=== PATIENT | female | born 1960 | race Caucasian/White ===

== ENCOUNTER 2024-05-15 06:58 | Inpatient (IN) ==
--- NOTE | 2024-05-15 07:29 | Emergency Department Note ---
Impression & Plan Nausea & vomiting, Ureterolithiasis, Fever ED Provider Note ED Provider Note NAME: DINORA JORDAN AGE:63 SEX: Female : 1960 ARRIVES VIA: [] INFORMANT: Patient ED PROVIDER(s): Gaby Reed DO CHIEF COMPLAINT: nausea/vomiting HPI: This is a 63-year-old female who presents emergency room due to concern for recurrent vomiting, right flank pain, and general abdominal discomfort that began overnight. Patient is from out of the area and is here dog sitting for a friend. She admits to accompanying chills but did not measure her temperature. She states symptoms first began abruptly at around 4 AM. She states she did eat different food yesterday evening that her friends had left for her and thought initially she maybe had food poisoning. Patient denies any other known sick contacts. She states she had a normal bowel movement yesterday and felt well and in her usual state of health yesterday. Patient has had prior gastric bypass although states that was greater than 10 years ago. Patient does not have a long history of kidney stones states the flank pain does feel similar to prior episodes. Patient also takes Ozempic, last dose was on Saturday. She has not recently increase the dose or had GI symptoms related to her Ozempic. No other recent change in diet, change in medications, or known sick contact. No recent travel. PAST MEDICAL HISTORY:See Below PAST SURGICAL HISTORY:See Below FAMILY HISTORY:See Below SOCIAL HISTORY:See Below HOME MEDICATIONS:See Below ALLERGIES:See Below VITALS:See Below PHYSICAL EXAMINATION: GENERAL: alert, well appearing, well nourished, no distress, non-toxic EYE EXAM: normal conjunctiva, PERRL and EOM's grossly intact OROPHARYNX: no exudate, no erythema, lips, buccal mucosa, and tongue normal and mucous membranes are moist NECK: supple, no nuchal rigidity, no adenopathy, non-tender LUNGS: Clear to auscultation. Normal chest wall mechanics, no w/r/r HEART: no murmurs, S1 normal and S2 normal ABDOMEN: abdomen soft, non-tender, normo-active bowel sounds, no masses, no rebound or guarding. BACK: Back is symmetrical on inspection and there is no deformity, no midline tenderness, no CVA tenderness. SKIN: no rashes, petechiae, orbruising UPPER EXTREMITIES: upper extremities are grossly normal. FROM, nml pulses b/l. LOWER EXTREMITIES: No pitting edema. FROM, nml pulses b/l. NEURO EXAM: Normal sensorium, cranial nerves II-XII grossly intact, normal speech, no facial droop,nogross weakness of arms, no gross weakness of legs. Gross sensation intact. No ataxia. Vital Signs: reviewed and remarkable Differential Diagnosis: viral syndrome, dehydration, uti, renal colic, pyelo, colitis, sbo, hepatitis, ascending cholangitis, pancreatitis, duodenitis, PUD, perforation, as well as others were considered MEDICAL DECISION MAKING: This is a 63 yo female who presents to the ER with abdominal pain and vomiting. She was afebrile and VS stable. Labs drawn and sent, IV established, EKG performed and interpreted at bedside, and patient placed on telemetry. She was started on IVF, and given IV zofran and IV tylenol initially. She had persistent nausea and was given IV compazine and IV benadryl. She was sent for CT a/p additionally and urine collected and sent. IV fentanyl given additionally for pain. Urine reassuring and no evidence of LUCILLE. Labs otherwise reassuring. While mangaing symptoms, patient then developed a fever. CT revealed ureterolithiasis. Cultures, procal, and lactic acid added and she was given a dose of IV rocephin. Due to concern for complications related to the stone and evolving infection, urology was contacted and came to see the patient at bedside. I discussed the case with the hospitalist team additionally. Patient was continued to IVF additionally and did receive 30 ml/kg based on ABW while in the ER. Consultation(s): 1141: Discussed with Phylicia Kim, urology team. She will be down to evaluate the patient. 1155: Patient seen by urology team, they will plan for stent placement today. 1220: Discussed with Dr. Villanueva, [facility] hospitalist team, for additional evaluation and management. ER Treatment Provided: See below Diagnostics Interpreted By Me: -ECG: Sinus tachycardia at 106, leftward axis, normal intervals, nonspecific ST/T wave changes -Cardiac Monitoring: An order was placed for continuous cardiac monitoring. The monitor shows a rate of 118 with sinus tachycardia rhythm. -Laboratory studies: As stated above and show below. -Imaging studies: ct a/p - ureterolithiasis noted, no other acute intraabdominal pathology Triage Nursing Note Reviewed Prior/Outside Records Reviewed Past Med/Surg History Problem List Fever (Acute) Ureterolithiasis (Acute) Nausea & vomiting (Acute) TIA (transient ischemic attack) (Acute) Diabetes (Chronic) HTN (hypertension) (Chronic) MTHFR mutation (Chronic) Slurred speech (Acute) Weakness (Acute) Social History Smoking Status: Former smoker Tobacco Type: Cigarettes Do You Dip or Chew Tobacco: No; Hx Alcohol Use: No Hx Substance Use: Yes Last Used Substance Other:: 03/04/2001 Preferred Language: Hungarian Communication Ability: Effective Operation Supervisor Required: No Beliefs That Will Affect Care: None Current Living Situation: Spouse Other Information That Helps Us Care for You: No Feels Safe at Home: Yes Safety Concerns: Feels Safe At This Time Assistive Devices: Denture - Lower Allergies Allergies Allergy/AdvReac Type Severity Reaction Status Date / Time hydromorphone Allergy Severe Anaphylaxis Verified 05/15/24 13:11 chlorhexidine Allergy Intermediate Blisters Verified 05/15/24 13:11 and itching oxycodone Allergy Mild Itching Verified 05/15/24 13:11 tetracycline Allergy Mild RASH Verified 05/15/24 13:11 capsaicin [Diclopak] AdvReac Severe Blurred Verified 05/15/24 13:11 vision with eye drops. diclofenac [Diclopak] AdvReac Severe Blurred Verified 05/15/24 13:11 vision with eye drops. hydrocodone AdvReac Severe Severe Verified 05/15/24 13:11 Headache aspirin AdvReac Intermediate Headache Verified 05/15/24 13:11 dipyridamole AdvReac Intermediate Headache Verified 05/15/24 13:11 Diclopak AdvReac Unknown Blurred Verified 10/08/14 21:07 vision with eye drops. Home Meds Home Medications Medication Instructions Recorded Confirmed calcium 500 mg-vitamin D3 100 1 tab PO BID ##0 10/08/14 05/15/24 unit-vitamin K 40 mcg chewable tablet cholecalciferol (vitamin D3) 50 50 mcg PO DAILY ##0 07/31/15 03/07/25 mcg (2,000 unit) tablet (Vitamin D3) cyanocobalamin (vitamin B-12) 1,000 mcg PO DAILY ##0 10/08/14 05/15/24 1,000 mcg tablet (Vitamin B-12) milk thistle 500 mg capsule 500 mg PO DAILY ##0 10/08/14 05/15/24 pediatric multivitamin 1 tab PO DAILY #0 tabs 10/08/14 05/15/24 simethicone 80 mg chewable tablet 80 mg PO BID PRN Abdominal 10/08/14 05/15/24 Distention ##0 vitamin E 268 mg (400 unit) capsule 268 mg PO DAILY ##0 10/08/14 05/15/24 clopidogrel 75 mg tablet 75 mg PO DAILY 05/15/24 05/15/24 pravastatin 20 mg tablet 20 mg PO DAILY 05/15/24 05/15/24 semaglutide 0.25 mg or 0.5 mg (2 0.5 mg subcut WK 05/15/24 05/15/24 mg/3 mL) subcutaneous pen injector (Ozempic) sertraline 100 mg tablet 100 mg PO DAILY 05/15/24 05/15/24 sertraline 25 mg tablet 25 mg PO DAILY 05/15/24 05/15/24 Results & Data (ED) Vital Signs Vital Signs - 24 hr 05/15/24 07:06 05/15/24 07:06 05/15/24 08:00 Temperature 36.9 C Temperature Source Oral Pulse Rate 104 H 110 H Pulse Rate [Apical] 104 H Pulse Rate from SpO2 Sensor 111 H Pulse Rhythm Regular Pulse Rhythm [Apical] Regular Pulse Strength Normal Pulse Strength [Apical] Normal Respiratory Rate 24 24 28 H Respiratory Effort / Characteristics Non-Labored Spontaneous Non-Labored Spontaneous Respiratory Depth Normal Normal Respiratory Pattern Regular Regular Blood Pressure 155/87 H 150/76 H Blood Pressure [Right Arm] 155/87 H Blood Pressure Mean 109 100 Blood Pressure Mean [Right Arm] 109 Blood Pressure Position Lying Blood Pressure Position [Right Arm] Pulse Oximetry 96 96 95 Oxygen Delivery Method Room Air Room Air Room Air Oxygen Flow Rate Sepsis Recent Fever Within 48 Hours No Sepsis New/Unexplained Change in Mental Status No Sepsis Action Taken by Nursing Physician Notified 05/15/24 08:17 05/15/24 09:00 05/15/24 09:30 Temperature Temperature Source Pulse Rate 97 H 104 H 115 H Pulse Rate [Apical] Pulse Rate from SpO2 Sensor 104 H 115 H Pulse Rhythm Pulse Rhythm [Apical] Pulse Strength Pulse Strength [Apical] Respiratory Rate 26 H 27 H Respiratory Effort / Characteristics Respiratory Depth Respiratory Pattern Blood Pressure 150/54 H 143/89 H Blood Pressure [Right Arm] Blood Pressure Mean 86 108 Blood Pressure Mean [Right Arm] Blood Pressure Position Blood Pressure Position [Right Arm] Pulse Oximetry 94 95 Oxygen Delivery Method Room Air Room Air Oxygen Flow Rate Sepsis Recent Fever Within 48 Hours Sepsis New/Unexplained Change in Mental Status Sepsis Action Taken by Nursing 05/15/24 10:49 05/15/24 11:30 05/15/24 12:05 Temperature 38.2 C H 37.6 C Temperature Source Oral Oral Pulse Rate 120 H Pulse Rate [Apical] 129 H 114 H Pulse Rate from SpO2 Sensor 118 H Pulse Rhythm Pulse Rhythm [Apical] Regular Regular Pulse Strength Pulse Strength [Apical] Normal Normal Respiratory Rate 34 H 26 H 26 H Respiratory Effort / Characteristics Spontaneous Labored Spontaneous Labored Respiratory Depth Shallow Shallow Respiratory Pattern Tachypnea Tachypnea Blood Pressure 161/86 H Blood Pressure [Right Arm] 178/98 H 138/80 Blood Pressure Mean 122 Blood Pressure Mean [Right Arm] 124 99 Blood Pressure Position Blood Pressure Position [Right Arm] Lying Pulse Oximetry 94 94 93 Oxygen Delivery Method Room Air Room Air Room Air Oxygen Flow Rate Sepsis Recent Fever Within 48 Hours Sepsis New/Unexplained Change in Mental Status Sepsis Action Taken by Nursing 05/15/24 12:05 05/15/24 12:21 05/15/24 12:53 Temperature 37.6 C Temperature Source Oral Pulse Rate 115 H Pulse Rate [Apical] 117 H Pulse Rate from SpO2 Sensor Pulse Rhythm Pulse Rhythm [Apical] Pulse Strength Pulse Strength [Apical] Respiratory Rate 20 Respiratory Effort / Characteristics Non-Labored Spontaneous Respiratory Depth Normal Respiratory Pattern Blood Pressure Blood Pressure [Right Arm] 142/82 H Blood Pressure Mean Blood Pressure Mean [Right Arm] 102 Blood Pressure Position Blood Pressure Position [Right Arm] Pulse Oximetry 93 Oxygen Delivery Method Room Air Oxygen Flow Rate Sepsis Recent Fever Within 48 Hours Sepsis New/Unexplained Change in Mental Status Sepsis Action Taken by Nursing 05/15/24 13:57 05/15/24 14:05 05/15/24 14:15 Temperature 36.9 C Temperature Source Temporal Artery Scan Pulse Rate Pulse Rate [Apical] 108 H 108 H 104 H Pulse Rate from SpO2 Sensor Pulse Rhythm Pulse Rhythm [Apical] Regular Regular Regular Pulse Strength Pulse Strength [Apical] Respiratory Rate 21 21 19 Respiratory Effort / Characteristics Non-Labored Spontaneous Non-Labored Spontaneous Non-Labored Spontaneous Respiratory Depth Normal Normal Normal Respiratory Pattern Regular Regular Regular Blood Pressure Blood Pressure [Right Arm] 151/80 H 136/74 127/73 Blood Pressure Mean Blood Pressure Mean [Right Arm] 103 94 91 Blood Pressure Position Blood Pressure Position [Right Arm] Pulse Oximetry 94 94 93 Oxygen Delivery Method Oxymask Oxymask Oxymask Oxygen Flow Rate 6 9 9 Sepsis Recent Fever Within 48 Hours Sepsis New/Unexplained Change in Mental Status Sepsis Action Taken by Nursing Laboratory Data 05/17/24 06:02 05/17/24 08:06 Lab Results 05/15/24 05/15/24 05/15/24 Range/Units 07:09 09:58 11:36 WBC 10.27 (4.8-10.8) K/ul RBC 5.52 H (4.20-5.40) M/uL Hgb 15.1 (12.0-16.0) g/dl Hct 44.9 (37.0-47.0) % MCV 81.3 (80.0-100.0) fL MCH 27.4 (25.0-34.0) pg MCHC 33.6 (32.0-36.0) g/dL RDW Std Deviation 39.0 (36.4-46.3) fL RDW Coeff of Philippe 13.2 (11.5-14.5) % Plt Count 139 (130-400) K/uL MPV 11.1 (9.4-12.4) fL Immature Gran % (Auto) 0.3 % Neut % (Auto) 91.9 % Lymph % (Auto) 2.2 % Gordon % (Auto) 4.8 % Eos % (Auto) 0.6 % Baso % (Auto) 0.2 % Neut # (Auto) 9.44 H (1.40-6.50) K/uL Lymph # (Auto) 0.23 L (1.20-3.40) K/uL Gordon # (Auto) 0.49 (0.11-0.59) K/uL Eos # (Auto) 0.06 (0.00-0.50) K/uL Baso # (Auto) 0.02 (0.00-0.20) K/uL Immature Gran # (Auto) 0.03 (0.01-0.20) K/uL PT 10.9 (9.0-12.0) Seconds INR 1.0 (0.9-1.1) Sodium 139 (136-145) mmol/L Potassium 3.6 (3.5-5.1) mmol/L Chloride 106 (98-107) mmol/L Carbon Dioxide 23 (21-32) mmol/L Anion Gap 10 (3-11) BUN 23 (6-23) mg/dl Creatinine 0.81 (0.6-1.2) mg/dl Est Cr Clr Drug Dosing 55.4 ml/min eGFR 82.54 BUN/Creatinine Ratio 28.4 H (10-20) Glucose 282 H (70-99(Fasting)) mg/dl POC Glucose (70-99) mg/dl Lactate 2.1 H* (0.4-2.0) mmol/L Calcium 8.9 (8.6-10.3) mg/dl Magnesium 1.8 (1.7-2.4) mg/dl Total Bilirubin 0.7 (0.2-1.0) mg/dl AST 29 (13-39) U/L ALT 37 (7-52) U/L Alkaline Phosphatase 99 (34-104) U/L Troponin I High Sens < 2.3 (0-14) pg/ml Total Protein 7.2 (6.0-8.3) gm/dl Albumin 4.6 (3.4-5.0) gm/dl Globulin 2.6 (2.5-4.0) gm/dl Albumin/Globulin Ratio 1.8 (0.9-2) Lipase 111 H (11-82) U/L Procalcitonin 0.09 (0-0.5) ng/ml Urine Color Yellow Urine Appearance Clear (Clear) Urine pH 5.0 (4.5-7.5) Ur Specific [place] 1.037 H (1.000-1.030) Urine Protein Negative (Negative) Urine Glucose (UA) 3+ H (Negative) Urine Ketones Negative (Negative) Urine Blood Negative (Negative) Urine Nitrite Negative (Negative) Urine Bilirubin Negative (Negative) Urine Urobilinogen Negative (Negative) Ur Leukocyte Esterase Negative (Negative) 05/15/24 05/15/24 Range/Units 14:06 14:24 WBC (4.8-10.8) K/ul RBC (4.20-5.40) M/uL Hgb (12.0-16.0) g/dl Hct (37.0-47.0) % MCV (80.0-100.0) fL MCH (25.0-34.0) pg MCHC (32.0-36.0) g/dL RDW Std Deviation (36.4-46.3) fL RDW Coeff of Philippe (11.5-14.5) % Plt Count (130-400) K/uL MPV (9.4-12.4) fL Immature Gran % (Auto) % Neut % (Auto) % Lymph % (Auto) % Gordon % (Auto) % Eos % (Auto) % Baso % (Auto) % Neut # (Auto) (1.40-6.50) K/uL Lymph # (Auto) (1.20-3.40) K/uL Gordon # (Auto) (0.11-0.59) K/uL Eos # (Auto) (0.00-0.50) K/uL Baso # (Auto) (0.00-0.20) K/uL Immature Gran # (Auto) (0.01-0.20) K/uL PT (9.0-12.0) Seconds INR (0.9-1.1) Sodium (136-145) mmol/L Potassium (3.5-5.1) mmol/L Chloride (98-107) mmol/L Carbon Dioxide (21-32) mmol/L Anion Gap (3-11) BUN (6-23) mg/dl Creatinine (0.6-1.2) mg/dl Est Cr Clr Drug Dosing ml/min eGFR BUN/Creatinine Ratio (10-20) Glucose (70-99(Fasting)) mg/dl POC Glucose 191 H (70-99) mg/dl Lactate 2.5 H* (0.4-2.0) mmol/L Calcium (8.6-10.3) mg/dl Magnesium (1.7-2.4) mg/dl Total Bilirubin (0.2-1.0) mg/dl AST (13-39) U/L ALT (7-52) U/L Alkaline Phosphatase (34-104) U/L Troponin I High Sens (0-14) pg/ml Total Protein (6.0-8.3) gm/dl Albumin (3.4-5.0) gm/dl Globulin (2.5-4.0) gm/dl Albumin/Globulin Ratio (0.9-2) Lipase (11-82) U/L Procalcitonin (0-0.5) ng/ml Urine Color Urine Appearance (Clear) Urine pH (4.5-7.5) Ur Specific [place] (1.000-1.030) Urine Protein (Negative) Urine Glucose (UA) (Negative) Urine Ketones (Negative) Urine Blood (Negative) Urine Nitrite (Negative) Urine Bilirubin (Negative) Urine Urobilinogen (Negative) Ur Leukocyte Esterase (Negative) Administered Medications Acetaminophen (Acetaminophen 325 Mg Tab) 650 mg PO Q6H PRN PRN Reason: Pain & Pre PT Stop: 06/14/24 13:41 Last Admin: 05/17/24 05:36 Dose: 650 mg Documented By: YADIEL Clopidogrel Bisulfate (Clopidogrel Bisulfate 75 Mg Tab) 75 mg PO DAILY [facility] Stop: 06/15/24 08:59 Last Admin: 05/17/24 07:40 Dose: 75 mg Documented By: Admin: 05/16/24 07:15 Dose: 75 mg Documented By: NAHUM Diphenhydramine HCl (Diphenhydramine Capsule 25 Mg Cap) 25 mg PO BID PRN PRN Reason: Rash Stop: 06/16/24 09:52 Last Admin: 05/17/24 10:45 Dose: 25 mg Documented By: NAHUM Enoxaparin Sodium (Enoxaparin Inj 40 Mg/0.4 Ml Syr) 40 mg SQ QAM [facility] Stop: 06/15/24 08:59 Last Admin: 05/17/24 07:41 Dose: 40 mg Documented By: Admin: 05/16/24 07:16 Dose: 40 mg Documented By: NAHUM Famotidine (Famotidine 10 Mg Tablet) 10 mg PO BID [facility] Stop: 06/15/24 08:59 Last Admin: 05/17/24 07:40 Dose: 10 mg Documented By: Admin: 05/16/24 21:13 Dose: 10 mg Documented By: Admin: 05/16/24 08:59 Dose: 10 mg Documented By: NAHUM Insulin Aspart (Insulin Aspart Per Unit Charge) 0 units SC ACHS [facility] Stop: 06/14/24 20:59 Last Admin: 05/17/24 12:23 Dose: 2 units Documented By: NAHUM Co-signed By: MARCELO Admin: 05/17/24 08:26 Dose: 2 units Documented By: NAHUM Co-signed By: MARCELO Admin: 05/16/24 21:14 Dose: Not Given Documented By: YADIEL Co-signed By: JAYY Admin: 05/16/24 17:18 Dose: Not Given Documented By: Admin: 05/16/24 12:10 Dose: 2 units Documented By: NAHUM Co-signed By: AYDEE Admin: 05/16/24 08:26 Dose: 2 units Documented By: NAHUM Co-signed By: MARCELO Admin: 05/15/24 22:30 Dose: 5 units Documented By: PNJesse Co-signed By: ELFEGO Insulin Glargine (Lantus Per Unit Charge) 5 units SQ BID [facility] Stop: 06/14/24 20:59 Last Admin: 05/17/24 08:26 Dose: 5 units Documented By: NAHUM Co-signed By: MARCELO Admin: 05/16/24 21:13 Dose: 5 units Documented By: YADIEL Co-signed By: JAYY Admin: 05/16/24 08:26 Dose: 5 units Documented By: NAHUM Co-signed By: MARCELO Admin: 05/15/24 22:30 Dose: 5 units Documented By: YADIEL Co-signed By: ELFEGO Lactobacillus Acidophilus (Advanced Probiotic 625 Mg Capsule) 1,250 mg PO DAILY [facility] Stop: 06/14/24 21:24 Last Admin: 05/17/24 07:40 Dose: 1,250 mg Documented By: Admin: 05/16/24 07:15 Dose: 1,250 mg Documented By: Admin: 05/15/24 22:35 Dose: 1,250 mg Documented By: YADIEL Loperamide HCl (Loperamide Hcl 2 Mg Cap) 2 mg PO BID PRN PRN Reason: Diarrhea Stop: 06/16/24 09:52 Last Admin: 05/17/24 10:45 Dose: 2 mg Documented By: NAHUM Miscellaneous (Check Scopolamine Patch Placement) 1 each N/A QS [facility] Stop: 05/18/24 05:59 Last Admin: 05/17/24 07:40 Dose: 1 each Documented By: Admin: 05/17/24 00:23 Dose: 1 each Documented By: Admin: 05/16/24 17:17 Dose: 1 each Documented By: Admin: 05/16/24 07:14 Dose: 1 each Documented By: Admin: 05/16/24 00:21 Dose: 1 each Documented By: Admin: 05/15/24 16:53 Dose: 1 each Documented By: NAHUM Phenazopyridine HCl (Phenazopyridine Hcl 100 Mg Tab) 100 mg PO TID PRN PRN Reason: bladder spasm Stop: 06/15/24 09:00 Last Admin: 05/17/24 08:25 Dose: 100 mg Documented By: NAHUM Pravastatin Sodium (Pravastatin Sod 20 Mg Tab) 20 mg PO DAILY [facility] Stop: 06/15/24 08:59 Last Admin: 05/17/24 07:40 Dose: 20 mg Documented By: Admin: 05/16/24 07:16 Dose: 20 mg Documented By: NAHUM Sertraline HCl (Sertraline Hcl 100 Mg Tablet) 100 mg PO DAILY [facility] Stop: 06/15/24 08:59 Last Admin: 05/17/24 07:42 Dose: 100 mg Documented By: Admin: 05/16/24 07:16 Dose: 100 mg Documented By: NAHUM Sertraline HCl (Sertraline Hcl 50 Mg Tablet) 25 mg PO DAILY [facility] Stop: 06/15/24 08:59 Last Admin: 05/17/24 07:39 Dose: 25 mg Documented By: Admin: 05/16/24 07:16 Dose: 25 mg Documented By: NAHUM Tamsulosin HCl (Tamsulosin Hcl 0.4 Mg Cap) 0.4 mg PO HS [facility] Stop: 06/15/24 20:59 Last Admin: 05/16/24 21:13 Dose: 0.4 mg Documented By: YADIEL Discontinued Medications Diphenhydramine HCl (Diphenhydramine 50 Mg/Ml Vial) 12.5 mg IV NOW STA Stop: 05/15/24 07:39 Last Admin: 05/15/24 07:47 Dose: 12.5 mg Documented By: TOBIAS Diphenhydramine HCl (Diphenhydramine 50 Mg/Ml Vial) 12.5 mg IV NOW STA Stop: 05/15/24 10:41 Last Admin: 05/15/24 10:45 Dose: 12.5 mg Documented By: TOBIAS Diphenhydramine HCl (Diphenhydramine Capsule 25 Mg Cap) 25 mg PO NOW ONE Stop: 05/16/24 11:45 Last Admin: 05/16/24 12:10 Dose: 25 mg Documented By: NAHUM Famotidine (Famotidine/Pf 20 Mg/2 Ml Vial) Confirm Administered Dose 20 mg IV .STK-MED ONE Stop: 05/15/24 12:52 Last Admin: 05/15/24 16:53 Dose: Not Given Documented By: NAHUM Sodium Chloride (Nss) 1,000 mls @ 125 mls/hr IV .Q8H [facility] Stop: 05/16/24 08:00 Last Infusion: 05/16/24 08:09 Dose: Infused Documented By: Admin: 05/16/24 01:04 Dose: 125 mls/hr Documented By: Infusion: 05/16/24 01:04 Dose: Infused Documented By: Infusion: 05/16/24 01:00 Dose: 0 mls/hr Documented By: Admin: 05/15/24 17:02 Dose: 125 mls/hr Documented By: Infusion: 05/15/24 16:53 Dose: Infused Documented By: Admin: 05/15/24 11:15 Dose: 250 mls/hr Documented By: Infusion: 05/15/24 11:15 Dose: Infused Documented By: Admin: 05/15/24 07:48 Dose: 250 mls/hr Documented By: TOBIAS Pantoprazole Sodium (Protonix) 40 mg in 10 mls @ 5 mls/min IV NOW ONE Stop: 05/15/24 07:36 Last Admin: 05/15/24 07:47 Dose: 5 mls/min Documented By: TOBIAS Prochlorperazine (Compazine) 1 mls @ 1 mls/min IV ONE ONE Stop: 05/15/24 07:39 Last Admin: 05/15/24 07:47 Dose: 1 mls/min Documented By: TOBIAS Sodium Chloride (Nss) 1,000 mls @ 999 mls/hr IV .Q1H1M ONE Stop: 05/15/24 11:08 Last Infusion: 05/15/24 11:04 Dose: Infused Documented By: SRNataly Admin: 05/15/24 10:37 Dose: 999 mls/hr Documented By: TOBIAS Acetaminophen (Ofirmev) 1,000 mg in 100 mls @ 400 mls/hr IV NOW STA Stop: 05/15/24 10:52 Last Infusion: 05/15/24 11:04 Dose: Infused Documented By: SRNataly Admin: 05/15/24 10:44 Dose: 400 mls/hr Documented By: TOBIAS Ceftriaxone Sodium (Rocephin) 2,000 mg in 50 mls @ 100 mls/hr IV NOW STA Stop: 05/15/24 12:09 Last Infusion: 05/15/24 16:54 Dose: Infused Documented By: Admin: 05/15/24 12:15 Dose: 100 mls/hr Documented By: TOBIAS Ceftriaxone Sodium (Rocephin) 2,000 mg in 50 mls @ 100 mls/hr IV Q24H [place] Stop: 05/26/24 08:59 Last Infusion: 05/17/24 08:21 Dose: Infused Documented By: Admin: 05/17/24 07:41 Dose: 100 mls/hr Documented By: Infusion: 05/16/24 07:44 Dose: Infused Documented By: Admin: 05/16/24 07:18 Dose: 100 mls/hr Documented By: NAHUM Magnesium Sulfate/Dextrose (Magnesium Sulfate / D5w) 1 gm in 100 mls @ 50 mls/hr IV Q2H [place] Stop: 05/16/24 11:59 Last Infusion: 05/16/24 12:07 Dose: Infused Documented By: Admin: 05/16/24 10:19 Dose: 50 mls/hr Documented By: Infusion: 05/16/24 10:19 Dose: Infused Documented By: Admin: 05/16/24 08:22 Dose: 50 mls/hr Documented By: NAHUM Ioversol (Optiray 320 100ml) 94 ml IV ONCE ONE Stop: 05/15/24 08:28 Last Admin: 05/15/24 08:27 Dose: 94 ml Documented By: SONI Ondansetron HCl (Ondansetron Inj 2 Mg/Ml 2 Ml Vial) Confirm Administered Dose 4 mg .ROUTE .STK-MED ONE Stop: 05/15/24 07:09 Last Admin: 05/15/24 07:47 Dose: Not Given Documented By: SRL Ondansetron HCl (Ondansetron Inj 2 Mg/Ml 2 Ml Vial) 4 mg IV NOW STA Stop: 05/15/24 07:42 Last Admin: 05/15/24 07:46 Dose: 4 mg Documented By: SRL Ondansetron HCl (Ondansetron Inj 2 Mg/Ml 2 Ml Vial) 4 mg IV NOW STA Stop: 05/15/24 10:41 Last Admin: 05/15/24 10:45 Dose: 4 mg Documented By: SRNataly Phenazopyridine HCl (Phenazopyridine Hcl 200 Mg Tab) 200 mg PO NOW STA Stop: 05/16/24 09:02 Last Admin: 05/16/24 09:26 Dose: 200 mg Documented By: NAHUM Potassium Chloride (Potassium Chloride Crtab 20 Meq Tabcr) 40 meq PO NOW STA Stop: 05/17/24 08:53 Last Admin: 05/17/24 08:59 Dose: 40 meq Documented By: NAHUM Scopolamine (Scopolamine 1 Mg/72 Hr Tdsy Patch) 1 patch TD ONE ONE Stop: 05/15/24 12:52 Last Admin: 05/15/24 13:05 Dose: 1 patch Documented By: FERMIN Imaging Data Radiologist's Impression: Retrograde Pyelogram 05/15/24 00:00 FL retrograde includes kub CLINICAL HISTORY: STENT PLACEMENT COMPARISON STUDY: None FLUOROSCOPY TIME: 9 seconds FLUOROSCOPY IMAGES: 3 EXPOSURE DOSE: 2 mGy FINDINGS: Fluoroscopy was provided for right ureteral stent. IMPRESSION: Intraoperative fluoroscopy. ACT 112: Negative or not required by law. Electronically signed by: Juancarlos Gore M.D. 05/15/2024 2:01 PM Abdomen/Pelvis CT 05/15/24 07:35 CT OF THE ABDOMEN AND PELVIS WITH CONTRAST CLINICAL HISTORY: n/v, right flank pain; hx stone, hx gastric bypass COMPARISON STUDY: None. TECHNIQUE: Following IV administration of 94 mL of Optiray, axial images of the abdomen and pelvis were obtained from the lung bases to the proximal femurs. Images were reviewed in the axial, sagittal, and coronal planes. IV contrast was administered without complication. Automated exposure control was utilized for the study. A dose lowering technique was utilized adhering to the principles of ALARA. CT DOSE: 1261.02 mGy.cm FINDINGS: Visualized portions of the lung bases are unremarkable. No pneumatosis, free air or portal venous gas is present. There is no biliary ductal dilatation status post cholecystectomy. The liver is cirrhotic. No hepatic lesions are identified on the venous phase exam. Spleen is moderately enlarged. There is no ascites. The adrenal glands and pancreas are unremarkable. There is a left renal cyst. Moderate right hydroureteronephrosis is due to multiple clustered distal right ureteral calculi which measure up to 1 cm. These are 4 cm proximal to the ureterovesical junction. Right nephrogram is not significantly delayed. Sensitivity for detection of renal calculi is diminished given excreted contrast. There is no evidence for a bowel obstruction status post Jc-en-Y gastric bypass. There is no lymphadenopathy. No fluid collections are present. Major vasculature is patent. IMPRESSION: 1. Clustered distal right ureteral calculi, measuring up to 1 cm, which result in moderate right hydronephrosis. 2. Decreased sensitivity for detection of renal calculi given excreted contrast. 3. Cirrhotic liver. Moderate splenomegaly. No ascites. 4. No bowel obstruction status post Jc-en-Y gastric bypass. ACT 112: Negative or not required by law. Electronically signed by: Nixon Dill M.D. 05/15/2024 8:57 AM Chest X-Ray 05/15/24 11:24 XR chest 1V portable CLINICAL HISTORY: fever COMPARISON STUDY: 10/08/2014 FINDINGS: Heart size and pulmonary vasculature are normal. No effusion or consolidation. IMPRESSION: No pneumonia seen. ACT 112: Negative or not required by law. Electronically signed by: Juancarlos Gore M.D. 05/15/2024 12:01 PM Discharge Plan Visit Data Chief Complaint: Vomiting Stated Complaint: ILLNESS ED Provider: Gaby Reed Discharge Problem: Nausea & vomiting, Ureterolithiasis, Fever Patient Disposition: Admitted As Inpatient Discharge Instructions Interventions: ED Discharge Assessment Last Done: 05/15/24 12:34
[2024-05-15] MEDS: ONDANSETRON INJ 2 MG/ML 2 ML VIAL IV STA ×2 (07:46→10:45)
[2024-05-15] MEDS: PROCHLORPERAZINE 1 ML IV ONE (07:47)
[2024-05-15] MEDS: PANTOprazole 40 MG/10 ML SYR IV ONE (07:47)
[2024-05-15] MEDS: ONDANSETRON INJ 2 MG/ML 2 ML VIAL ONE (07:47)
[2024-05-15] MEDS: diphenhydrAMINE 50 MG/ML VIAL IV STA ×2 (07:47→10:45)
[2024-05-15] MEDS: SODIUM CHLORIDE 0.9% 1,000 ML IV SCH (07:48)
[2024-05-15 07:49] LABS: Hematocrit (blood only) 44.9 % (37.0-47.0); Hemoglobin 15.1 g/dl (12.0-16.0); Mean Corpuscular Hemoglobin 27.4 pg (25.0-34.0); Mean Corpuscular Hgb Conc 33.6 g/dL (32.0-36.0); Mean Corpuscular Volume 81.3 fL (80.0-100.0); Mean Platelet Volume 11.1 fL (9.4-12.4); Platelet Count 139 K/uL (130-400); RDW Coefficient of Variation 13.2 % (11.5-14.5); Red Blood Count 5.52 M/uL (4.20-5.40); White Blood Count 10.27 K/ul (4.8-10.8)
[2024-05-15 08:11] LABS: Alanine Aminotransferase 37 U/L (7-52); Albumin Globulin Ratio 1.8 (0.9-2); Albumin Level 4.6 gm/dl (3.4-5.0); Alkaline Phosphatase 99 U/L (34-104); Anion Gap 10 (3-11); Aspartate Aminotransferase 29 U/L (13-39); BUN Creatinine Ratio 28.4 (10-20); Bilirubin,Total 0.7 mg/dl (0.2-1.0); Blood Urea Nitrogen 23 mg/dl (6-23); Calcium 8.9 mg/dl (8.6-10.3); Carbon Dioxide 23 mmol/L (21-32); Chloride 106 mmol/L (98-107); Creatinine Clr Calc Pharmacy 55.4 ml/min; Globulin 2.6 gm/dl (2.5-4.0); Glucose 282 mg/dl (70-99(Fasting)); Lipase 111 U/L (11-82); Magnesium 1.8 mg/dl (1.7-2.4); Potassium 3.6 mmol/L (3.5-5.1); Sodium 139 mmol/L (136-145); Total Protein 7.2 gm/dl (6.0-8.3)
[2024-05-15 08:12] LABS: Prothrombin Time 10.9 Seconds (9.0-12.0)
[2024-05-15 08:14] LABS: Basophils # (auto) 0.02 K/uL (0.00-0.20); Basophils % (auto) 0.2 %; Eosinophils # (auto) 0.06 K/uL (0.00-0.50); Eosinophils % (auto) 0.6 %; Immature Granulocytes # (auto) 0.03 K/uL (0.01-0.20); Immature Granulocytes % (auto) 0.3 %; Lymphocytes # (auto) 0.23 K/uL (1.20-3.40); Lymphocytes % (auto) 2.2 %; Monocytes # (auto) 0.49 K/uL (0.11-0.59); Monocytes % (auto) 4.8 %; Neutrophils # (auto) 9.44 K/uL (1.40-6.50); Neutrophils % (auto) 91.9 %
[2024-05-15 08:16] LABS: Troponin I High Sensitivity < 2.3 pg/ml (0-14)
[2024-05-15] MEDS: OPTIRAY 320 100ml IV ONE (08:27)
--- NOTE | 2024-05-15 08:59 | CT Scan Report ---
CT OF THE ABDOMEN AND PELVIS WITH CONTRAST CLINICAL HISTORY: n/v, right flank pain; hx stone, hx gastric bypass COMPARISON STUDY: None. TECHNIQUE: Following IV administration of 94 mL of Optiray, axial images of the abdomen and pelvis we re obtained from the lung bases to the proximal femurs. Images were reviewed in the axial, sagittal, and coronal planes. IV contrast was administered without complication. Automated exposure control wa s utilized for the study. A dose lowering technique was utilized adhering to the principles of ALARA . CT DOSE: 1261.02 mGy.cm FINDINGS: Visualized portions of the lung bases are unremarkable. No pneumatosis, free air or portal venous gas is present. There is no biliary ductal dilatation status post cholecystectomy. The liver i s cirrhotic. No hepatic lesions are identified on the venous phase exam. Spleen is moderately enlarge d. There is no ascites. The adrenal glands and pancreas are unremarkable. There is a left renal cyst. Moderate right hydroureteronephrosis is due to multiple clustered distal right ureteral calculi whic h measure up to 1 cm. These are 4 cm proximal to the ureterovesical junction. Right nephrogram is not significantly delayed. Sensitivity for detection of renal calculi is diminished given excreted contr ast. There is no evidence for a bowel obstruction status post Jc-en-Y gastric bypass. There is no l ymphadenopathy. No fluid collections are present. Major vasculature is patent. IMPRESSION: 1. Clustered distal right ureteral calculi, measuring up to 1 cm, which result in moderate right hydr onephrosis. 2. Decreased sensitivity for detection of renal calculi given excreted contrast. 3. Cirrhotic liver. Moderate splenomegaly. No ascites. 4. No bowel obstruction status post Jc-en-Y gastric bypass. ACT 112: Negative or not required by law. Electronically signed by: Nixon Dill M.D. 05/15/2024 8:57 AM
[2024-05-15 10:08] LABS: Appearance Urine Clear (Clear); Bilirubin Urine Negative (Negative); Blood Urine Negative (Negative); Color Urine Yellow; Glucose Urine UA 3+ (Negative); Ketones Urine Negative (Negative); Leukocyte Esterase Urine Negative (Negative); Nitrite Urine Negative (Negative); Protein Urine Negative (Negative); Specific Gravity Urine 1.037 (1.000-1.030); Urobilinogen Urine Negative (Negative)
[2024-05-15] MEDS ORDERED: fentaNYL citrate PF 100 MCG/2 ML VIAL IV PRN ×2 (10:17→12:16)
[2024-05-15] MEDS: SODIUM CHLORIDE 0.9% 1,000 ML IV ONE (10:37)
[2024-05-15] MEDS: ACETAMINOPHEN 1,000 MG/100 ML VIAL IV STA (10:44)
--- NOTE | 2024-05-15 12:03 | XRay Report ---
XR chest 1V portable CLINICAL HISTORY: fever COMPARISON STUDY: 10/08/2014 FINDINGS: Heart size and pulmonary vasculature are normal. No effusion or consolidation. IMPRESSION: No pneumonia seen. ACT 112: Negative or not required by law. Electronically signed by: Juancarlos Gore M.D. 05/15/2024 12:01 PM
--- NOTE | 2024-05-15 12:14 | Urology Consultation ---
Date of Consultation May 15, 2024 Assessment & Plan (1) Ureterolithiasis: (2) Fever: (3) Nausea & vomitin-year-old female presenting to the emergency department with right flank pain, vomiting and chills. CT imaging demonstrated cluster of obstructing right ureteral calculi. She became febrile with signs of sepsis in ED. Urology consulted for obstructing stones and sepsis Patient febrile, tachycardic and tachypneic Labscreatinine 0.81, WBC 10.27 UA on arrival was not suggestive of infection Urine and blood cultures obtained Recommend start broad-spectrum antibiotics Recommend emergent cystoscopy and right ureteral stent placement given obstructing stones, fever and sepsis, patient is agreeable She understands that stone treatment will take place at a later date after infection has been treated Proceed to OR for cystoscopy and right ureteral stent placement Keep n.p.o. for procedure Recommend admit to medicine Continue antibiotics, supportive care, and medical management per hospital medicine will follow History of Present Illness History of Present Illness This is a 63-year-old female with history of gastric bypass and nephrolithiasis who presented to the emergency department today for evaluation of worsening right flank pain, vomiting, and chills. On arrival to ED, she was afebrile, tachycardic and tachypneic. Lab work showed creatinine 0.81, WBC 10.27, hemoglobin 15.1. Urinalysis showed 3+ glucose, otherwise negative. CT abdomen pelvis with contrast shows moderate right hydronephrosis with a cluster of stones measuring up to 1 cm in the mid to distal right ureter. She was treated with IV fluids, ondansetron and Compazine in the emergency department. She spiked fever of 38.2 in ED with worsening tachycardia meeting SIRS criteria. Urine and blood cultures collected as well as a lactic and procalcitonin. Patient seen and examined in the emergency department. She is resting in litter. She reports pain started several days ago, but worsened significantly early this morning with associated vomiting. She reports chills since this morning. No nausea or vomiting at present. She is voiding spontaneously. She has a history of kidney stones with prior surgical intervention. She is not following with a urologist at present. Last ate/drank around 2 am. On Ozempic, last taken Saturday. Allergies Allergy/AdvReac Type Severity Reaction Status Date / Time hydromorphone Allergy Severe Anaphylaxis Verified 03/07/25 09:30 chlorhexidine Allergy Intermediate Blisters Verified 05/15/24 09:30 and itching oxycodone Allergy Mild Itching Verified 05/15/24 09:30 tetracycline Allergy Mild RASH Verified 05/15/24 09:30 capsaicin [Diclopak] AdvReac Severe Blurred Verified 05/15/24 09:34 vision with eye drops. diclofenac [Diclopak] AdvReac Severe Blurred Verified 05/15/24 09:34 vision with eye drops. hydrocodone AdvReac Severe Severe Verified 05/15/24 09:34 Headache aspirin AdvReac Intermediate Headache Verified 05/15/24 09:34 dipyridamole AdvReac Intermediate Headache Verified 05/15/24 09:34 Diclopak AdvReac Unknown Blurred Verified 10/08/14 21:07 vision with eye drops. Home Medications Medication Instructions Recorded Confirmed Type calcium 500 mg-vitamin D3 100 1 tab PO BID ##0 10/08/14 05/15/24 History unit-vitamin K 40 mcg chewable tablet cholecalciferol (vitamin D3) 50 50 mcg PO DAILY ##0 10/08/14 05/15/24 History mcg (2,000 unit) tablet (Vitamin D3) cyanocobalamin (vitamin B-12) 1,000 mcg PO DAILY ##0 10/08/14 05/15/24 History 1,000 mcg tablet (Vitamin B-12) milk thistle 500 mg capsule 500 mg PO DAILY ##0 10/08/14 05/15/24 History pediatric multivitamin 1 tab PO DAILY #0 tabs 10/08/14 05/15/24 History simethicone 80 mg chewable tablet 80 mg PO BID PRN Abdominal 10/08/14 05/15/24 History Distention ##0 vitamin E 268 mg (400 unit) capsule 268 mg PO DAILY ##0 10/08/14 05/15/24 History clopidogrel 75 mg tablet 75 mg PO DAILY 05/15/24 05/15/24 History pravastatin 20 mg tablet 20 mg PO DAILY 05/15/24 05/15/24 History semaglutide 0.25 mg or 0.5 mg (2 0.5 mg subcut WK 05/15/24 05/15/24 History mg/3 mL) subcutaneous pen injector (Ozempic) sertraline 100 mg tablet 100 mg PO DAILY 05/15/24 05/15/24 History sertraline 25 mg tablet 25 mg PO DAILY 05/15/24 05/15/24 History Patient History Social History Smoking Status: Former smoker Tobacco Type: Cigarettes Feels Safe at Home: Yes Review of Systems Review of Systems: All systems reviewed & are unremarkable except as noted in HPI & below Physical Exam Constitutional: + ill appearing; no acute distress Respiratory: + tachypneic; no respiratory distress an d no labored breathing Cardiovascular: Rate/Rhythm: + tachycardic Gastrointestinal (Abdomen): Inspection/Auscultation: abdomen not distended Musculoskeletal: Head/Neck/Chest: normocephalic Neurologic: moves all extremities and awake Psychiatric: Orientation: alert and oriented x 3 Genitourinary: no CVA tenderness Results & Data Vital Signs (Past 12 Hours) Vital Signs Temp Pulse Pulse Resp BP BP Pulse Ox 05/15/24 11:30 120 H 26 H 161/86 H 94 05/15/24 10:49 38.2 C H 129 H 34 H 178/98 H 94 05/15/24 09:30 115 H 27 H 143/89 H 95 05/15/24 09:00 104 H 26 H 150/54 H 94 05/15/24 08:17 97 H 05/15/24 08:00 110 H 28 H 150/76 H 95 05/15/24 07:06 104 H 24 155/87 H 96 05/15/24 07:06 36.9 C 104 H 24 155/87 H 96 O2 Del Method 05/15/24 11:30 Room Air 05/15/24 10:49 Room Air 05/15/24 09:30 Room Air 05/15/24 09:00 Room Air 05/15/24 08:17 05/15/24 08:00 Room Air 05/15/24 07:06 Room Air 05/15/24 07:06 Room Air PG Care Time/CCT Total # of Minutes Spent Total Time Spent with Patient: Total time spent is greater than 50% in coordination of care (as documented) at patient's floor/unit and/or counseling patient: Coding Level of Care Code 97802 IN/OBS CONSULT LVL 5,80M Diagnoses Ureterolithiasis N20.1 Fever R50.9 Nausea & vomiting R11.2
[2024-05-15] MEDS: cefTRIAXone SODIUM 2,000 MG/50 ML BAG IV STA (12:15)
[2024-05-15] MEDS ORDERED: ONDANSETRON INJ 2 MG/ML 2 ML VIAL IV PRN (12:16)
[2024-05-15] MEDS ORDERED: ePHEDrine sulfate 50 MG/ML AMP IV PRN (12:16)
[2024-05-15] MEDS ORDERED: ATROPINE SULFATE 0.1 MG/ML 10ML SYR IV PRN (12:16)
--- NOTE | 2024-05-15 12:17 | Anesthesiology Consultation ---
Date of Service May 15, 2024 Assessment & Plan Chart Review Chart Review: Acceptable Risk for Surgery and Patient NOT seen in Pre Admission Testing Consults Requested none History Surgery Operation Date: 05/15/24 10:40 Proposed Procedures p Cystoscopy, Right Ureteral Stent Insertion - Colton Garcia MD Height/Weight Height: 4 ft 11 in Weight: 55.5 kg Allergies Allergy/AdvReac Type Severity Reaction Status Date / Time hydromorphone Allergy Severe Anaphylaxis Verified 05/15/24 09:30 chlorhexidine Allergy Intermediate Blisters Verified 05/15/24 09:30 and itching oxycodone Allergy Mild Itching Verified 05/15/24 09:30 tetracycline Allergy Mild RASH Verified 05/15/24 09:30 capsaicin [Diclopak] AdvReac Severe Blurred Verified 05/15/24 09:34 vision with eye drops. diclofenac [Diclopak] AdvReac Severe Blurred Verified 05/15/24 09:34 vision with eye drops. hydrocodone AdvReac Severe Severe Verified 05/15/24 09:34 Headache aspirin AdvReac Intermediate Headache Verified 05/15/24 09:34 dipyridamole AdvReac Intermediate Headache Verified 05/15/24 09:34 Diclopak AdvReac Unknown Blurred Verified 10/08/14 21:07 vision with eye drops. Medications Home Medications Medication Instructions Recorded Confirmed Last Taken calcium 500 mg-vitamin D3 100 1 tab PO BID ##0 10/08/14 05/15/24 05/14/24 unit-vitamin K 40 mcg chewable tablet cholecalciferol (vitamin D3) 50 50 mcg PO DAILY ##0 10/08/14 05/15/24 05/14/24 mcg (2,000 unit) tablet (Vitamin D3) cyanocobalamin (vitamin B-12) 1,000 mcg PO DAILY ##0 10/08/14 05/15/24 05/14/24 1,000 mcg tablet (Vitamin B-12) milk thistle 500 mg capsule 500 mg PO DAILY ##0 10/08/14 05/15/24 05/14/24 pediatric multivitamin 1 tab PO DAILY #0 tabs 10/08/14 05/15/24 05/14/24 simethicone 80 mg chewable tablet 80 mg PO BID PRN Abdominal 10/08/14 05/15/24 05/14/24 Distention ##0 vitamin E 268 mg (400 unit) capsule 268 mg PO DAILY ##0 10/08/14 05/15/24 05/14/24 clopidogrel 75 mg tablet 75 mg PO DAILY 05/15/24 05/15/24 05/14/24 pravastatin 20 mg tablet 20 mg PO DAILY 05/15/24 05/15/24 05/14/24 semaglutide 0.25 mg or 0.5 mg (2 0.5 mg subcut WK 05/15/24 05/15/24 05/10/24 mg/3 mL) subcutaneous pen injector (FLX Micro) sertraline 100 mg tablet 100 mg PO DAILY 05/15/24 05/15/24 05/14/24 sertraline 25 mg tablet 25 mg PO DAILY 05/15/24 05/15/24 05/14/24 Active Medications Generic Name Dose Route Start Last Admin Trade Name Paulq PRN Reason Stop Dose Admin Sodium Chloride 1,000 mls @ 250 mls/hr 05/15/24 07:30 05/15/24 11:15 Nss IV 05/16/24 07:29 250 mls/hr .Q4H MOISES Administration Social History Smoking Status: Former smoker Physical Exam Vital Signs Last Vital Signs Temp 38.2 C H 05/15/24 10:49 Pulse 120 H 05/15/24 11:30 Resp 26 H 05/15/24 11:30 BP 161/86 H 05/15/24 11:30 Pulse Ox 94 05/15/24 11:30 O2 Del Method Room Air 05/15/24 11:30 Testing Laboratory Results 05/15/24 07:09 05/15/24 07:09 PT 10.9 Seconds (9.0-12.0) 05/15/24 07:09 INR 1.0 (0.9-1.1) 05/15/24 07:09 Urine Color Yellow 05/15/24 09:58 Urine Appearance Clear (Clear) 05/15/24 09:58 Urine pH 5.0 (4.5-7.5) 05/15/24 09:58 Ur Specific [place] 1.037 (1.000-1.030) H 05/15/24 09:58 Urine Protein Negative (Negative) 05/15/24 09:58 Urine Glucose (UA) 3+ (Negative) H 05/15/24 09:58 Urine Ketones Negative (Negative) 05/15/24 09:58 Urine Nitrite Negative (Negative) 05/15/24 09:58 Ur Leukocyte Esterase Negative (Negative) 05/15/24 09:58 Electrocardiogram Date: 05/15/24 Findings: + ST @ (106)
--- NOTE | 2024-05-15 12:32 | Electrocardiogram Report ---
Test Reason : Blood Pressure : */* mmHG Vent. Rate : 106 BPM Atrial Rate : 106 BPM P-R Int : 134 ms QRS Dur : 82 ms QT Int : 358 ms P-R-T Axes : 20 -49 16 degrees QTcB Int : 475 ms Sinus tachycardia Left anterior fascicular block Possible Old Anterior infarct Abnormal ECG When compared with ECG of 09-Oct-2014 07:28, Vent. rate has increased by 53 bpm QRS axis Shifted left Criteria for Old Anterior infarct is now Present Confirmed by Richard Farnsworth ([id number]) on 05/15/2024 12:31:54 PM Referred By: REFERRED SELF Confirmed By: Richard Farnsworth
[2024-05-15] MEDS ORDERED: fentaNYL citrate PF 100 MCG/2 ML VIAL ONE (12:38)
[2024-05-15] MEDS ORDERED: PROPOFOL IV EMULSION 10 MG/ML 20 ML VIAL IV ONE ×2 (12:41→12:45)
[2024-05-15] MEDS ORDERED: LIDOCAINE 2% 2 ML VIAL/AMP(20MG/ML) INFIL ONE (12:41)
[2024-05-15] MEDS ORDERED: SUCCINYLCHOLINE CHLORIDE 20 MG/ML 10 ML VIAL IV ONE (12:41)
[2024-05-15] MEDS ORDERED: ROCURONIUM BROMIDE 10 MG/ML 5 ML VIAL IV ONE (12:44)
[2024-05-15] MEDS ORDERED: MIDAZOLAM HCL 1 MG/ML 2ML VIAL ONE (12:46)
[2024-05-15] MEDS ORDERED: DEXAMETHASONE SOD INJ 4 MG/ML VIAL ONE (12:47)
[2024-05-15] MEDS ORDERED: ONDANSETRON INJ 2 MG/ML 2 ML VIAL ONE (12:47)
[2024-05-15] MEDS: SCOPOLAMINE 1 MG/72 HR TDSY PATCH TD ONE (13:05)
[2024-05-15] MEDS ORDERED: METOCLOPRAMIDE HCL INJ 5 MG/ML 2 ML VIAL ONE (13:35)
[2024-05-15] MEDS ORDERED: PHENYLEPHRINE 100MCG/ML 5ML SYR ONE (13:36)
--- NOTE | 2024-05-15 13:46 | Operative Report ---
PG Post Operative Report Pre & Post Diagnosis Operation Date: 05/15/24 10:40 Pre: sepsis; obstructing right ureteral calculi Post: sepsis; obstructing right ureteral calculi I identified the patient and participated in the time-out.: Yes Procedure Operation Date: 05/15/24 10:40 Procedure: cysto, right ureteral stent placement Surgeon Colton Garcia MD Multicraft Operator none Estimated Blood Loss 0 Findings Consistent with Post-Op Diagnosis Specimens none Description of Procedure The patient was identified in the preoperative holding area, appropriate informed consents were reviewed and completed and the patient was transferred to the operative suite. Upon arrival, appropriate antibiotics and anesthesia were administered and the patient was placed in dorsal lithotomy position and prepped and draped in sterile fashion. To be in the case I passed a 21 Macanese cystoscope with 30 degree lens. Inspection revealed clear urine and a healthy appearing bladder. There was no pus within the bladder neck and there was some urine being excreted from the right ureter. Following my inspection of the bladder I turned my attention to the right ureteral orifice and I cannulated with a sensor wire and a 5 Macanese open-ended catheter. I had resistance in the distal ureter consistent with the location of the stones. I was able to navigate the wire beyond it and advanced the wire into the kidney. Of note, the kidney is filled with contrast from her prior CT scan and she has hydronephrosis. I position the wire in the upper pole and I proceeded to place a 6 Macanese by 24 cm double-J stent. There was good curl in the kidney as well as the bladder. I emptied the bladder and concluded the case. She was reversed of anesthesia and taken to the recovery room in stable condition. There were no complications. I attest to the content of the Intraoperative Record and any orders documented therein. Any exceptions are noted below.
--- NOTE | 2024-05-15 14:02 | Fluoroscopy Report ---
FL retrograde includes kub CLINICAL HISTORY: STENT PLACEMENT COMPARISON STUDY: None FLUOROSCOPY TIME: 9 seconds FLUOROSCOPY IMAGES: 3 EXPOSURE DOSE: 2 mGy FINDINGS: Fluoroscopy was provided for right ureteral stent. IMPRESSION: Intraoperative fluoroscopy. ACT 112: Negative or not required by law. Electronically signed by: Juancarlos Gore M.D. 05/15/2024 2:01 PM
--- NOTE | 2024-05-15 14:49 | Anesthesiology Progress Note ---
Date of Service May 15, 2024 Anesthesia Post Procedure Vital Signs Vital Signs: Temp Pulse Pulse Resp BP BP Pulse Ox 05/15/24 14:45 37.1 C 103 H 18 117/67 94 05/15/24 14:35 103 H 18 120/71 93 05/15/24 14:25 101 H 18 120/70 97 05/15/24 14:15 104 H 19 127/73 93 05/15/24 14:05 108 H 21 136/74 94 05/15/24 13:57 36.9 C 108 H 21 151/80 H 94 05/15/24 12:53 117 H 20 142/82 H 93 05/15/24 12:21 115 H 05/15/24 12:05 37.6 C 05/15/24 12:05 37.6 C 114 H 26 H 138/80 93 05/15/24 11:30 120 H 26 H 161/86 H 94 05/15/24 10:49 38.2 C H 129 H 34 H 178/98 H 94 05/15/24 09:30 115 H 27 H 143/89 H 95 05/15/24 09:00 104 H 26 H 150/54 H 94 05/15/24 08:17 97 H 05/15/24 08:00 110 H 28 H 150/76 H 95 05/15/24 07:06 104 H 24 155/87 H 96 05/15/24 07:06 36.9 C 104 H 24 155/87 H 96 O2 Del Method O2 Flow Rate 05/15/24 14:45 Oxymask 4 05/15/24 14:35 Oxymask 4 05/15/24 14:25 Oxymask 9 05/15/24 14:15 Oxymask 9 05/15/24 14:05 Oxymask 9 05/15/24 13:57 Oxymask 6 05/15/24 12:53 Room Air 05/15/24 12:21 05/15/24 12:05 05/15/24 12:05 Room Air 05/15/24 11:30 Room Air 05/15/24 10:49 Room Air 05/15/24 09:30 Room Air 05/15/24 09:00 Room Air 05/15/24 08:17 05/15/24 08:00 Room Air 05/15/24 07:06 Room Air 05/15/24 07:06 Room Air Transfer of Care Handoff Completed per policy Notes Mental Status: alert / awake / arousable Patient Amnestic to Procedure: Yes Nausea / Vomiting: adequately controlled Pain: adequately controlled Airway Patency, RR, SpO2: stable & adequate BP & HR: stable & adequate Hydration State: stable & adequate Anesthetic Complications: no major complications apparent and Pt Satisfied with anesthetic care
--- NOTE | 2024-05-15 15:06 | History & Physical Report ---
Date of Service May 15, 2024 Assessment & Plan (1) Ureterolithiasis: Plan: Acute s/p R ureteral stent placement by Dr. Garcia - Admit to med/surg - Diabetic diet - Post op care per Dr. Garcia, formal consult placed, appreciate assistance - VS per unit protocol, wean off oxymask - Continue IVF hydration with NSS at 125 ml/hr and stop tomorrow AM (2) Fever: Plan: Acute in setting of ureterolithiasis - Cover with ceftriaxone, received one dose in AM, continue 2g IV q24 - UA unremarkable - Lactate elevated at 2.1, aggressively hydrated and repeat 2.5, however, pt is postop - Repeat in another 3 hours - Hydrate as above (3) Nausea & vomiting: Plan: Acute - ?related to stone + infection - Continue scopolamine patch - Add IV zofran 4mg IV q6 prn n/v (4) Diabetes: Plan: Chronic - Unknown last a1c as she is not from the area and has no prior records in our system - On Ozempic weekly, last taken on Saturday - Ozempic held, check BSG ac and hs, can consider adding coverage of BSG >180 - Diabetic diet ordered Plan Depression - continue sertraline DVT ppx - Lovenox AM labs have been ordered. Above plan of care has been d/w Dr. Villanueva. Further orders to be implemented as warranted by attending. Admission and Anticipated Discharge Date Admission Date: May 15, 2024 History of Present Illness Chief Complaint: N/V Primary Care Provider: Eh Mendoza is a 63 yo F with a pmhx of DMT2, HLD, depression, h/o gastric bypass over 10 yrs ago who presented to the ER today c/o n/v and right sided flank pain that started last evening. History is limited as patient is still in PACU recovering from anesthesia and is unable to provide any subjective information. Therefore, history is taken from ER note and chart information. 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 She began having n/v last evening and flank pain, no reported fever or abdominal pain or diarrhea. No ill contacts or recent travel. She does have a h/o kidney stones in the past. Her ER w/u showed a normal UA and no fever on initial presentation and no leukocytosis on CBC. However, she spiked a fever and her lactate returned mildly elevated at 2.1. A CTAP was obtained with contrast that demonstrated a conglomerate of kidney stones measuring 1cm in the distal right ureter. She was aggressively hydrated with NSS and treated empirically with ceftriaxone 2g x1. Urology was consulted and took her to the OR for stent placement. She is currently seen in PACU, she is currently on 4L oxymask. She has a scopolamine patch in place d/t her severe n/v. She has been referred to hospital medicine team for admission. Allergies Allergy/AdvReac Type Severity Reaction Status Date / Time hydromorphone Allergy Severe Anaphylaxis Verified 05/15/24 13:11 chlorhexidine Allergy Intermediate Blisters Verified 05/15/24 13:11 and itching oxycodone Allergy Mild Itching Verified 05/15/24 13:11 tetracycline Allergy Mild RASH Verified 05/15/24 13:11 capsaicin [Diclopak] AdvReac Severe Blurred Verified 05/15/24 13:11 vision with eye drops. diclofenac [Diclopak] AdvReac Severe Blurred Verified 05/15/24 13:11 vision with eye drops. hydrocodone AdvReac Severe Severe Verified 05/15/24 13:11 Headache aspirin AdvReac Intermediate Headache Verified 05/15/24 13:11 dipyridamole AdvReac Intermediate Headache Verified 05/15/24 13:11 Diclopak AdvReac Unknown Blurred Verified 10/08/14 21:07 vision with eye drops. Home Medications Medication Instructions Recorded Confirmed Type calcium 500 mg-vitamin D3 100 1 tab PO BID ##0 10/08/14 05/15/24 History unit-vitamin K 40 mcg chewable tablet cholecalciferol (vitamin D3) 50 50 mcg PO DAILY ##0 10/08/14 05/15/24 History mcg (2,000 unit) tablet (Vitamin D3) cyanocobalamin (vitamin B-12) 1,000 mcg PO DAILY ##0 10/08/14 05/15/24 History 1,000 mcg tablet (Vitamin B-12) milk thistle 500 mg capsule 500 mg PO DAILY ##0 10/08/14 05/15/24 History pediatric multivitamin 1 tab PO DAILY #0 tabs 10/08/14 05/15/24 History simethicone 80 mg chewable tablet 80 mg PO BID PRN Abdominal 10/08/14 05/15/24 History Distention ##0 vitamin E 268 mg (400 unit) capsule 268 mg PO DAILY ##0 10/08/14 05/15/24 History clopidogrel 75 mg tablet 75 mg PO DAILY 05/15/24 05/15/24 History pravastatin 20 mg tablet 20 mg PO DAILY 05/15/24 05/15/24 History semaglutide 0.25 mg or 0.5 mg (2 0.5 mg subcut WK 05/15/24 05/15/24 History mg/3 mL) subcutaneous pen injector (Ozempic) sertraline 100 mg tablet 100 mg PO DAILY 05/15/24 05/15/24 History sertraline 25 mg tablet 25 mg PO DAILY 05/15/24 05/15/24 History Past Med/Surg History Problem List Fever (Acute) Ureterolithiasis (Acute) Nausea & vomiting (Acute) TIA (transient ischemic attack) (Acute) Diabetes (Chronic) HTN (hypertension) (Chronic) MTHFR mutation (Chronic) Slurred speech (Acute) Weakness (Acute) Social History Smoking Status: Former smoker Tobacco Type: Cigarettes Feels Safe at Home: Yes Review of Systems 2 Review of Systems: Unobtainable Physical Exam 2 Physical Exam: GENERAL: 63 yo well-nourished WF. Somnolent but hemodynamically stable. HENT: Moist mucous membranes. No cervical lymphadenopathy. LUNGS: Clear to auscultation bilaterally. No accessory muscle use. No W/R/R. CARDIOVASCULAR: Regular rate and rhythm. No M/G/R. No JVD. ABDOMEN: Soft and non-distended. Bowel sounds normoactive x 4 quad. EXTREMITIES: No edema. Peripheral pulses +2/4. SKIN: Warm, dry, intact. No rashes or lesions. Results & Data Results & Data Vital Signs (Past 12 Hours) Vital Signs Temp Pulse Pulse Resp BP BP Pulse Ox 05/15/24 14:45 37.1 C 103 H 18 117/67 94 05/15/24 14:35 103 H 18 120/71 93 05/15/24 14:25 101 H 18 120/70 97 05/15/24 14:15 104 H 19 127/73 93 05/15/24 14:05 108 H 21 136/74 94 05/15/24 13:57 36.9 C 108 H 21 151/80 H 94 05/15/24 12:53 117 H 20 142/82 H 93 05/15/24 12:21 115 H 05/15/24 12:05 37.6 C 05/15/24 12:05 37.6 C 114 H 26 H 138/80 93 05/15/24 11:30 120 H 26 H 161/86 H 94 05/15/24 10:49 38.2 C H 129 H 34 H 178/98 H 94 05/15/24 09:30 115 H 27 H 143/89 H 95 05/15/24 09:00 104 H 26 H 150/54 H 94 05/15/24 08:17 97 H 05/15/24 08:00 110 H 28 H 150/76 H 95 05/15/24 07:06 104 H 24 155/87 H 96 05/15/24 07:06 36.9 C 104 H 24 155/87 H 96 O2 Del Method O2 Flow Rate 05/15/24 14:45 Oxymask 4 05/15/24 14:35 Oxymask 4 05/15/24 14:25 Oxymask 9 05/15/24 14:15 Oxymask 9 05/15/24 14:05 Oxymask 9 05/15/24 13:57 Oxymask 6 05/15/24 12:53 Room Air 05/15/24 12:21 05/15/24 12:05 05/15/24 12:05 Room Air 05/15/24 11:30 Room Air 05/15/24 10:49 Room Air 05/15/24 09:30 Room Air 05/15/24 09:00 Room Air 05/15/24 08:17 05/15/24 08:00 Room Air 05/15/24 07:06 Room Air 05/15/24 07:06 Room Air Laboratory Results 05/15/24 07:09 05/15/24 07:09 Diagnostic Findings Retrograde Pyelogram 05/15/24 00:00 FL retrograde includes kub CLINICAL HISTORY: STENT PLACEMENT COMPARISON STUDY: None FLUOROSCOPY TIME: 9 seconds FLUOROSCOPY IMAGES: 3 EXPOSURE DOSE: 2 mGy FINDINGS: Fluoroscopy was provided for right ureteral stent. IMPRESSION: Intraoperative fluoroscopy. ACT 112: Negative or not required by law. Electronically signed by: Juancarlos Gore M.D. 05/15/2024 2:01 PM Abdomen/Pelvis CT 05/15/24 07:35 CT OF THE ABDOMEN AND PELVIS WITH CONTRAST CLINICAL HISTORY: n/v, right flank pain; hx stone, hx gastric bypass COMPARISON STUDY: None. TECHNIQUE: Following IV administration of 94 mL of Optiray, axial images of the abdomen and pelvis were obtained from the lung bases to the proximal femurs. Images were reviewed in the axial, sagittal, and coronal planes. IV contrast was administered without complication. Automated exposure control was utilized for the study. A dose lowering technique was utilized adhering to the principles of ALARA. CT DOSE: 1261.02 mGy.cm FINDINGS: Visualized portions of the lung bases are unremarkable. No pneumatosis, free air or portal venous gas is present. There is no biliary ductal dilatation status post cholecystectomy. The liver is cirrhotic. No hepatic lesions are identified on the venous phase exam. Spleen is moderately enlarged. There is no ascites. The adrenal glands and pancreas are unremarkable. There is a left renal cyst. Moderate right hydroureteronephrosis is due to multiple clustered distal right ureteral calculi which measure up to 1 cm. These are 4 cm proximal to the ureterovesical junction. Right nephrogram is not significantly delayed. Sensitivity for detection of renal calculi is diminished given excreted contrast. There is no evidence for a bowel obstruction status post Jc-en-Y gastric bypass. There is no lymphadenopathy. No fluid collections are present. Major vasculature is patent. IMPRESSION: 1. Clustered distal right ureteral calculi, measuring up to 1 cm, which result in moderate right hydronephrosis. 2. Decreased sensitivity for detection of renal calculi given excreted contrast. 3. Cirrhotic liver. Moderate splenomegaly. No ascites. 4. No bowel obstruction status post Jc-en-Y gastric bypass. ACT 112: Negative or not required by law. Electronically signed by: Nixon Dill M.D. 05/15/2024 8:57 AM Chest X-Ray 05/15/24 11:24 XR chest 1V portable CLINICAL HISTORY: fever COMPARISON STUDY: 10/08/2014 FINDINGS: Heart size and pulmonary vasculature are normal. No effusion or consolidation. IMPRESSION: No pneumonia seen. ACT 112: Negative or not required by law. Electronically signed by: Juancarlos Gore M.D. 05/15/2024 12:01 PM PG Care Time/CCT Total # of Minutes Spent Total Time Spent with Patient: Total time spent is greater than 50% in coordination of care (as documented) at patient's floor/unit and/or counseling patient: 77 minutes Coding Level of Care Code 04626 INT INP/OBS CARE 3/75MIN Diagnoses Ureterolithiasis N20.1 Fever R50.9 Nausea & vomiting R11.2 Diabetes E11.9
[2024-05-15] MEDS ORDERED: CARBOHYDRATES FOR HYPOGLYCEMIA PO PRN (16:04)
[2024-05-15] MEDS ORDERED: ALUMINUM/MAGNESIUM SUSP 30 ML UDC PO PRN (16:04)
[2024-05-15] MEDS ORDERED: GLUCAGON FOR INJ 1 MG VIAL SQ PRN (16:04)
[2024-05-15] MEDS ORDERED: GLUCOSE 40% GEL 15 GM TUBE PO PRN (16:04)
[2024-05-15] MEDS ORDERED: MELATONIN 3 MG TAB PO PRN (16:04)
[2024-05-15] MEDS ORDERED: DEXTROSE 50% 50 ML SYRINGE IV PRN (16:04)
[2024-05-15] MEDS: CHECK SCOPOLAMINE PATCH PLACEMENT SCH (16:53)
[2024-05-15] MEDS: FAMOTIDINE/PF 20 MG/2 ML VIAL IV ONE (16:53)
[2024-05-15] MEDS: LANTUS PER UNIT CHARGE SQ SCH (22:30)
[2024-05-15] MEDS: INSULIN ASPART PER UNIT CHARGE SC SCH (22:30)
[2024-05-15] MEDS: ADVANCED PROBIOTIC 625 MG CAPSULE PO SCH (22:35)
[2024-05-16] MEDS: CLOPIDOGREL BISULFATE 75 MG TAB PO SCH (07:15)
[2024-05-16] MEDS: ENOXAPARIN INJ 40 MG/0.4 ML SYR SQ SCH (07:16)
[2024-05-16] MEDS: SERTRALINE HCL 50 MG TABLET PO SCH (07:16)
[2024-05-16] MEDS: SERTRALINE HCL 100 MG TABLET PO SCH (07:16)
[2024-05-16] MEDS: PRAVASTATIN SOD 20 MG TAB PO SCH (07:16)
[2024-05-16] MEDS: cefTRIAXone SODIUM 2,000 MG/50 ML BAG IV SCH (07:18)
[2024-05-16 07:22] LABS: BUN Creatinine Ratio 16.9 (10-20); Calcium 7.3 mg/dl (8.6-10.3); Creatinine Clr Calc Pharmacy 58.3 ml/min; Magnesium 1.6 mg/dl (1.7-2.4); Potassium 3.5 mmol/L (3.5-5.1)
[2024-05-16 07:41] LABS: Eosinophils # (auto) 0.01 K/uL (0.00-0.50); Eosinophils % (auto) 0.3 %; Hematocrit (blood only) 32.5 % (37.0-47.0); Hemoglobin 10.5 g/dl (12.0-16.0); Immature Granulocytes # (auto) 0.01 K/uL (0.01-0.20); Immature Granulocytes % (auto) 0.3 %; Lymphocytes # (auto) 0.23 K/uL (1.20-3.40); Lymphocytes % (auto) 5.9 %; Mean Corpuscular Hemoglobin 26.6 pg (25.0-34.0); Mean Corpuscular Hgb Conc 32.3 g/dL (32.0-36.0); Mean Corpuscular Volume 82.3 fL (80.0-100.0); Mean Platelet Volume 10.5 fL (9.4-12.4); Monocytes # (auto) 0.27 K/uL (0.11-0.59); Monocytes % (auto) 6.9 %; Neutrophils # (auto) 3.37 K/uL (1.40-6.50); Neutrophils % (auto) 86.6 %; Platelet Count 90 K/uL (130-400); Platelet Estimate Decreased (Normal); RDW Coefficient of Variation 13.5 % (11.5-14.5); RDW Standard Deviation 40.4 fL (36.4-46.3); Red Blood Count 3.95 M/uL (4.20-5.40); White Blood Count 3.89 K/ul (4.8-10.8)
--- NOTE | 2024-05-16 07:58 | Hospitalist Progress Note ---
Date of Service May 16, 2024 Assessment & Plan (1) Ureterolithiasis: Plan: 63yo presented with abdominal pain, nausea and vomiting with hx stones in the past WBC 10.2K w/ Temp 38.2C. Procal 0.09 CTAP on admission with Clustered distal right ureteral calculi, measuring up to 1 cm, which result in moderate right hydronephrosis. * noted no evidence for bowel obstructions s/p gastric bypass but does note cirrhotic liver. LFTs were wnl on admission. Appears on milk thistle at baseline (suspect on to such) Urology consulted s/p cysto, right ureteral stent placement with Dr Garcia 05/15 -Per OP report: "Of note, the kidney is filled with contrast from her prior CT scan and she has hydronephrosis. I position the wire in the upper pole and I proceeded to place a 6 [place] by 24 cm double-J stent" Ceftriaxone IV continued IVF @ 125cc/hr for 24hrs, now discontinued WBC 10.2--> 3.8k. Lactic added to AM labs and normalized to 1.5 Blood cultures pending. Afebrile. Hgb 15--> 10.5 but had been on copious IVF and suspect aspect of dilution. No bleeding w/ diarrhea reported but have ordered cdiff/pending Mag 1.8--> 1.6, 2gm IV ordered and will monitor Vit D pending (reports on at home) Pyridium ordered for pain control, monitor response Pepcid PO for GI proph DVT proph: lovenox SQ Monitor labs/exam in AM for hopeful dc 05/17 (2) Fever: Plan: In setting of stones w/ hydro and remains on Ceftriaxone and will continue until blood cx negative x 48hours. Monitor for cdiff as above (3) Nausea & vomiting: Plan: suspected 2nd to above. scopolamine patch and antiemetics available and improved abilityfor PO (4) Diabetes: Plan: Chronic. Glu 282 on admission without anion gap. Unknown last A1c as not in system but on ozempic weekly (last dose last saturday) and held while inpatient and BSG checks have been acceptable and Glu 131 on Am labs Continue BSG checks and can add coverage if >180 but michelle monitor A1c w/ AM labs Plan Depression - continue sertraline, mood stable DVT ppx - Lovenox while inpatient. Pepcid for GI proph Dispo: continued inpatient stay on IV abx/monitoring for cdiff, pyridium ordered for discomfort/bladder spasm and plans for dc tomorrow if blood cultures negative/improved Admission and Anticipated Discharge Date Admission Date: May 15, 2024 Supervising Physician Co-Signing Physician Notes The patient was not seen by me. The chart was reviewed. Case discussed with RANJAN Dias. Agree with assessment and plan Subjective EVal this morning, resting in bed. Feeling better but still having ongoing discomfort to bladder. Discussed Pyridium, she has had in the past. Will order/monitor. Hx stones, takes Vit D daily at baseline. Remains on abx. Had some diarrhea but none since last evening reported but stool studies ordered. Denied blood w/ BM and had been brown in color. Urine still reported blood and remains on abx. No hx DVT but is on plavix. No hx GI bleeding in the past. Hx miscarriages/strokes, MTHFR mutation hx. No leg edema/calf tenderness. No increased abdominal distension. Takes milk thistle for her liver but no need for diuretics. Prefers monitoring overnight and if improved for discharge tomorrow. Questions/concerns addressed at this time. Physical Exam 2 Physical Exam: General: 63yo female sitting up in bed, NAD but some mild uncomfortable/discomfort to suprapubic region HEEENT: head atraumatic, normocephalic, mm improved, trachea midline Resp: even/unlabored, on room air CV: RRR, no significant m/r/g, no pitting edema/pulses present GI: +BS, slight distension, slight suprapubic discomfort, no guarding/rigidity : no verdin, +CVA tenderness MSK/Neuro: nonfocal, answering questions appropriately Psych: AOx3, cooperative with exam Results & Data Results & Data Vital Signs (Past 12 Hours) Vital Signs Temp Pulse Resp BP Pulse Ox O2 Del Method 05/16/24 07:13 36.9 C 82 16 116/66 93 Room Air 05/16/24 07:02 36.9 C 74 16 97/57 L 93 Room Air 05/16/24 03:27 37.2 C 84 16 110/65 95 Room Air 05/15/24 23:00 36.7 C 88 18 112/68 94 Room Air 05/15/24 20:00 36.5 C 89 18 120/70 93 Room Air Laboratory Results 05/16/24 06:42 05/16/24 06:42 Mag 1.6 LFTs wnl Vit D pending Diagnostic Findings Retrograde Pyelogram 05/15/24 00:00 FL retrograde includes kub CLINICAL HISTORY: STENT PLACEMENT COMPARISON STUDY: None FLUOROSCOPY TIME: 9 seconds FLUOROSCOPY IMAGES: 3 EXPOSURE DOSE: 2 mGy FINDINGS: Fluoroscopy was provided for right ureteral stent. IMPRESSION: Intraoperative fluoroscopy. ACT 112: Negative or not required by law. Electronically signed by: Juancarlos Gore M.D. 05/15/2024 2:01 PM Abdomen/Pelvis CT 05/15/24 07:35 CT OF THE ABDOMEN AND PELVIS WITH CONTRAST CLINICAL HISTORY: n/v, right flank pain; hx stone, hx gastric bypass COMPARISON STUDY: None. TECHNIQUE: Following IV administration of 94 mL of Optiray, axial images of the abdomen and pelvis were obtained from the lung bases to the proximal femurs. Images were reviewed in the axial, sagittal, and coronal planes. IV contrast was administered without complication. Automated exposure control was utilized for the study. A dose lowering technique was utilized adhering to the principles of ALARA. CT DOSE: 1261.02 mGy.cm FINDINGS: Visualized portions of the lung bases are unremarkable. No pneumatosis, free air or portal venous gas is present. There is no biliary ductal dilatation status post cholecystectomy. The liver is cirrhotic. No hepatic lesions are identified on the venous phase exam. Spleen is moderately enlarged. There is no ascites. The adrenal glands and pancreas are unremarkable. There is a left renal cyst. Moderate right hydroureteronephrosis is due to multiple clustered distal right ureteral calculi which measure up to 1 cm. These are 4 cm proximal to the ureterovesical junction. Right nephrogram is not significantly delayed. Sensitivity for detection of renal calculi is diminished given excreted contrast. There is no evidence for a bowel obstruction status post Jc-en-Y gastric bypass. There is no lymphadenopathy. No fluid collections are present. Major vasculature is patent. IMPRESSION: 1. Clustered distal right ureteral calculi, measuring up to 1 cm, which result in moderate right hydronephrosis. 2. Decreased sensitivity for detection of renal calculi given excreted contrast. 3. Cirrhotic liver. Moderate splenomegaly. No ascites. 4. No bowel obstruction status post Jc-en-Y gastric bypass. ACT 112: Negative or not required by law. Electronically signed by: Nixon Dill M.D. 05/15/2024 8:57 AM Chest X-Ray 05/15/24 11:24 XR chest 1V portable CLINICAL HISTORY: fever COMPARISON STUDY: 10/08/2014 FINDINGS: Heart size and pulmonary vasculature are normal. No effusion or consolidation. IMPRESSION: No pneumonia seen. ACT 112: Negative or not required by law. Electronically signed by: Juancarlos Gore M.D. 05/15/2024 12:01 PM PG Care Time/CCT Total # of Minutes Spent Total Time Spent with Patient: Total time spent is greater than 50% in coordination of care (as documented) at patient's floor/unit and/or counseling patient: Coding Level of Care Code 89081 SUB INP/OBS CARE 3/50MIN Diagnoses Ureterolithiasis N20.1 Fever R50.9 Nausea & vomiting R11.2 Diabetes E11.9
[2024-05-16] MEDS: MAGNESIUM SULFATE / D5W 1 GM/100 ML BAG IV SCH (08:22)
[2024-05-16 08:58] LABS: Albumin Level 3.6 gm/dl (3.4-5.0); Bilirubin Direct 0.1 mg/dl (0-0.2); Bilirubin,Total 0.4 mg/dl (0.2-1.0); Total Protein 5.8 gm/dl (6.0-8.3)
[2024-05-16] MEDS: FAMOTIDINE 10 MG TABLET PO SCH (08:59)
[2024-05-16] MEDS: PHENAZOPYRIDINE HCL 200 MG TAB PO STA (09:26)
--- NOTE | 2024-05-16 09:42 | Urology Progress Note ---
Date of Service May 16, 2024 Assessment & Plan (1) Ureterolithiasis: Plan Obstructing ureteral calculi with suspected infection status post emergent right ureteral stent placement yesterday Await final culture results Ultimately will require second surgery I will make arrangements for this as an outpatient Discharge home once medically stable Admission and Anticipated Discharge Date Admission Date: May 15, 2024 Subjective Subjectively she is drastically improved from yesterday Pain has resolved Minimal stent related discomfort, afebrile, no hypotension or tachycardia Much more alert and vibrant today Physical Exam Constitutional: well developed and well nourished Respiratory: no respiratory distress Cardiovascular: Extremities: no pedal edema Gastrointestinal (Abdomen): Inspection/Auscultation: abdomen normal to inspection Results & Data Vital Signs (Past 12 Hours) Vital Signs Temp Pulse Resp BP Pulse Ox O2 Del Method 05/16/24 07:13 36.9 C 82 16 116/66 93 Room Air 05/16/24 07:02 36.9 C 74 16 97/57 L 93 Room Air 05/16/24 03:27 37.2 C 84 16 110/65 95 Room Air 05/15/24 23:00 36.7 C 88 18 112/68 94 Room Air PG Care Time/CCT Total # of Minutes Spent Total Time Spent with Patient: Total time spent is greater than 50% in coordination of care (as documented) at patient's floor/unit and/or counseling patient: Coding Level of Care Code 22408 SUB INP/OBS CARE 2/35MIN Diagnoses Ureterolithiasis N20.1
[2024-05-16] MEDS: diphenhydrAMINE Capsule 25 MG CAP PO ONE (12:10)
[2024-05-16] MEDS: TAMSULOSIN HCL 0.4 MG CAP PO SCH (21:13)
[2024-05-17] MEDS: ACETAMINOPHEN 325 MG TAB PO PRN (05:36)
[2024-05-17 06:28] LABS: Basophils # (auto) 0.01 K/uL (0.00-0.20); Basophils % (auto) 0.3 %; Eosinophils # (auto) 0.02 K/uL (0.00-0.50); Eosinophils % (auto) 0.6 %; Hematocrit (blood only) 29.3 % (37.0-47.0); Hemoglobin 9.8 g/dl (12.0-16.0); Immature Granulocytes # (auto) 0.01 K/uL (0.01-0.20); Immature Granulocytes % (auto) 0.3 %; Lymphocytes # (auto) 0.61 K/uL (1.20-3.40); Mean Corpuscular Hemoglobin 27.5 pg (25.0-34.0); Mean Corpuscular Hgb Conc 33.4 g/dL (32.0-36.0); Mean Corpuscular Volume 82.1 fL (80.0-100.0); Mean Platelet Volume 11.2 fL (9.4-12.4); Monocytes # (auto) 0.34 K/uL (0.11-0.59); Neutrophils % (auto) 70.8 %; Platelet Count 90 K/uL (130-400); RDW Coefficient of Variation 13.4 % (11.5-14.5); RDW Standard Deviation 40.2 fL (36.4-46.3); Red Blood Count 3.57 M/uL (4.20-5.40); White Blood Count 3.39 K/ul (4.8-10.8)
[2024-05-17 06:51] LABS: Anion Gap 2 (3-11); BUN Creatinine Ratio 14.5 (10-20); Blood Urea Nitrogen 11 mg/dl (6-23); Calcium 7.7 mg/dl (8.6-10.3); Carbon Dioxide 24 mmol/L (21-32); Chloride 111 mmol/L (98-107); Creatinine Clr Calc Pharmacy 59.1 ml/min; Glucose 93 mg/dl (70-99(Fasting)); Sodium 137 mmol/L (136-145)
[2024-05-17] MEDS: PHENAZOPYRIDINE HCL 100 MG TAB PO PRN (08:25)
[2024-05-17] MEDS: POTASSIUM CHLORIDE CRTAB 20 MEQ TABCR PO STA (08:59)
[2024-05-17 09:11] LABS: Estimated Average Glucose 137 mg/dl; Hemoglobin A1C 6.4 % (4.5-5.6)
[2024-05-17] MEDS: diphenhydrAMINE Capsule 25 MG CAP PO PRN (10:45)
[2024-05-17] MEDS: LOPERAMIDE HCL 2 MG CAP PO PRN (10:45)
--- NOTE | 2024-05-17 11:07 | Urology Progress Note ---
Date of Service May 17, 2024 Assessment & Plan (1) Ureterolithiasis: Plan Postop day 2 status post emergent stent for an obstructing right calculus and infection Will ultimately need continued antibiotic coverage Discharge home once stable Outpatient follow-up and definitive surgery arrangements have already been initiated Admission and Anticipated Discharge Date Admission Date: May 15, 2024 Subjective Doing okay from a kidney standpoint She has had some upper respiratory symptoms which are unrelated to her recent kidney stone Tolerating the stent, minor bladder spasms No fevers All labs and vitals are to baseline Physical Exam Constitutional: well developed and well nourished Respiratory: no respiratory distress Cardiovascular: Extremities: no pedal edema Gastrointestinal (Abdomen): Inspection/Auscultation: abdomen normal to inspection Results & Data Vital Signs (Past 12 Hours) Vital Signs Temp Pulse Resp BP Pulse Ox O2 Del Method 05/17/24 07:12 36.9 C 72 18 121/69 96 Room Air PG Care Time/CCT Total # of Minutes Spent Total Time Spent with Patient: Total time spent is greater than 50% in coordination of care (as documented) at patient's floor/unit and/or counseling patient: Coding Level of Care Code 66434 SUB INP/OBS CARE 2/35MIN Diagnoses Ureterolithiasis N20.1
--- NOTE | 2024-05-17 12:06 | Hospitalist Progress Note ---
Date of Service May 17, 2024 Assessment & Plan (1) Ureterolithiasis: Plan: 63yo presented with abdominal pain, nausea and vomiting with hx stones in the past WBC 10.2K w/ Temp 38.2C. Procal 0.09 CTAP on admission with Clustered distal right ureteral calculi, measuring up to 1 cm, which result in moderate right hydronephrosis. * noted no evidence for bowel obstructions s/p gastric bypass but does note cirrhotic liver. LFTs were wnl on admission. Appears on milk thistle at baseline (suspect on 2nd to such) Urology consulted s/p cysto, right ureteral stent placement with Dr Garcia 05/15 -Per OP report: "Of note, the kidney is filled with contrast from her prior CT scan and she has hydronephrosis. I position the wire in the upper pole and I proceeded to place a 6 [place] by 24 cm double-J stent" CTAP: clustered distal right ureteral calculi measuring up to 1cm which result in moderate right hydronephrosis. Urology consulted & following - s/p cystoscopy w/ Dr. Garcia, recommended additional 4 days of abx to complete treatment Urinalysis negative on admission, cultures from cystoscopy pending. CBC w/ pancytopenia, continue to monitor. BMP w/ hypokalemia 3.3, s/p PO repletion. Mag stable at 2.0 Procal 0.09 on admission Due to rash switch from Rocephin to Bactrim starting 05/18. Benadryl prn for itching Pyridium prn for pain control. Max 3 days. AM CBC/BMP (2) Diarrhea: Plan: Patient w/ episodes of diarrhea ongoing since admission C diff testing negative Imodium prn Monitor BM's. (3) Fever: Plan: Plan as above, resolved. (4) Nausea & vomiting: Plan: suspected 2nd to above. scopolamine patch and antiemetics available and improved abilityfor PO resolved (5) Diabetes: Plan: Chronic. Glu 282 on admission without anion gap. A1c 6.4% On Ozempic outpatient - hold while in patient. Plan Chronic conditions: Depression - continue sertraline, mood stable DVT ppx - Lovenox while inpatient. Code: full Anticipate discharge home 05/18. Discussed w/ urology 05/17. Admission and Anticipated Discharge Date Admission Date: May 15, 2024 Subjective Patient seen and examined this morning. patient reports she continues w/ diarrhea and a rash. Reports she is having lower abdominal discomfort which she believes is from the stent. Patient reports she does not feel ready to return home yet. Physical Exam Constitutional: WD/WN, vitals as above Eyes: PERRL, conjunctivae normal, anicteric sclerae Respiratory: breathing unlabored Cardiovascular: well perfused Gastrointestinal (Abdomen): normal bowel sounds, soft, nontender, no hepatosplenomegaly Skin: patches of erythema on cervical/chest region Psychiatric: A+Ox3, euthymic affect Results & Data Results & Data Vital Signs (Past 12 Hours) Vital Signs Temp Pulse Resp BP Pulse Ox O2 Del Method 05/17/24 07:12 36.9 C 72 18 121/69 96 Room Air PG Care Time/CCT Total # of Minutes Spent Total Time Spent with Patient: Total time spent is greater than 50% in coordination of care (as documented) at patient's floor/unit and/or counseling patient: Coding Level of Care Code 28083 SUB INP/OBS CARE 2/35MIN Diagnoses Ureterolithiasis N20.1 Diarrhea R19.7 Fever R50.9 Nausea & vomiting R11.2 Diabetes E11.9
[2024-05-18] MEDS: ONDANSETRON INJ 2 MG/ML 2 ML VIAL IV PRN (02:50)
[2024-05-18 07:20] LABS: Basophils # (auto) 0.01 K/uL (0.00-0.20); Basophils % (auto) 0.3 %; Eosinophils # (auto) 0.05 K/uL (0.00-0.50); Eosinophils % (auto) 1.7 %; Hematocrit (blood only) 31.1 % (37.0-47.0); Hemoglobin 10.3 g/dl (12.0-16.0); Immature Granulocytes # (auto) 0.01 K/uL (0.01-0.20); Immature Granulocytes % (auto) 0.3 %; Lymphocytes # (auto) 0.66 K/uL (1.20-3.40); Lymphocytes % (auto) 22.4 %; Mean Corpuscular Hemoglobin 26.9 pg (25.0-34.0); Mean Corpuscular Hgb Conc 33.1 g/dL (32.0-36.0); Mean Corpuscular Volume 81.2 fL (80.0-100.0); Mean Platelet Volume 11.2 fL (9.4-12.4); Monocytes # (auto) 0.19 K/uL (0.11-0.59); Monocytes % (auto) 6.5 %; Neutrophils # (auto) 2.02 K/uL (1.40-6.50); Neutrophils % (auto) 68.8 %; Platelet Count 95 K/uL (130-400); RDW Coefficient of Variation 13.4 % (11.5-14.5); RDW Standard Deviation 39.3 fL (36.4-46.3); Red Blood Count 3.83 M/uL (4.20-5.40); White Blood Count 2.94 K/ul (4.8-10.8)
[2024-05-18 08:01] LABS: BUN Creatinine Ratio 13.5 (10-20); Calcium 8.2 mg/dl (8.6-10.3); Creatinine Clr Calc Pharmacy 60.6 ml/min; Magnesium 1.9 mg/dl (1.7-2.4); Potassium 3.6 mmol/L (3.5-5.1)
--- NOTE | 2024-05-18 09:03 | Discharge Summary ---
<Statement entered by Jasmine Grace MD - 05/18/24 18:43> See my communication note from this afternoon Additional diagnoses: Pancytopenia - unknown cause, no obvious culprit meds, suspect chronic with hemoconcentration at time of admission Psychogenic non-epileptic seizures - longstanding, flared up with multiple episodes when about to discharge today, did not discharge today. Discharge Summary Date of Service May 18, 2024 Principal Dx & Hospital Course #1 = Principal Diagnosis (1) Ureterolithiasis: 63yo presented with abdominal pain, nausea and vomiting with hx stones in the past CTAP: clustered distal right ureteral calculi measuring up to 1cm which result in moderate right hydronephrosis. Urology consulted & following - s/p cystoscopy w/ Dr. Garcia, recommended additional 4 days of abx to complete treatment Urinalysis negative on admission, cultures from cystoscopy pending. CBC w/ pancytopenia, continue to monitor. --> improved 05/18. Follow up w/ PCP outpatient for further workup & repeat CBC. BMP stable Procal 0.09 on admission Due to rash switch from Rocephin to Bactrim starting 05/18. Benadryl prn for itching& Pyridium prn for pain control. Max 3 days. (2) Diarrhea: Patient w/ episodes of diarrhea ongoing since admission C diff testing negative Imodium prn (3) Fever: Plan as above, resolved. (4) Nausea & vomiting: suspected 2nd to above. scopolamine patch and antiemetics available and improved abilityfor PO resolved (5) Diabetes: Chronic. Glu 282 on admission without anion gap. A1c 6.4% Resume Ozempic outpatient. Plan Chronic conditions: Depression - continue sertraline, mood stable Admission HPI Per Admitting Provider Kelly is a 63 yo F with a pmhx of DMT2, HLD, depression, h/o gastric bypass over 10 yrs ago who presented to the ER today c/o n/v and right sided flank pain that started last evening. History is limited as patient is still in PACU recovering from anesthesia and is unable to provide any subjective information. Therefore, history is taken from ER note and chart information. 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 She began having n/v last evening and flank pain, no reported fever or abdominal pain or diarrhea. No ill contacts or recent travel. She does have a h/o kidney stones in the past. Her ER w/u showed a normal UA and no fever on initial presentation and no leukocytosis on CBC. However, she spiked a fever and her lactate returned mildly elevated at 2.1. A CTAP was obtained with contrast that demonstrated a conglomerate of kidney stones measuring 1cm in the distal right ureter. She was aggressively hydrated with NSS and treated empirically with ceftriaxone 2g x1. Urology was consulted and took her to the OR for stent placement. She is currently seen in PACU, she is currently on 4L oxymask. She has a scopolamine patch in place d/t her severe n/v. She has been referred to hospital medicine team for admission. Discharge Exam Constitutional WD/WN, vitals as above Eyes PERRL, conjunctivae normal, anicteric sclerae Respiratory breathing unlabored Cardiovascular well perfused Psychiatric A+Ox3, euthymic affect Discharge Plan Discharge Items Patient Disposition: Home - Self-Care Reason For Visit: ILLNESS Discharge Diagnosis: Ureterolithiasis, Diarrhea Activity: Resume your previous activity Non-emergency contact: Primary Care Provider and Urologist Call non-emergency contact if: you have any medication questions, your symptoms worsen, your pain is not controlled and you have a fever Follow-up/Referrals: Colton Garcia MD [Physician] - (THE OFFICE WILL CALL YOU WITH A HOSPITAL FOLLOW UP VISIT.) Yojana Bolanos C.R.N.P. [Outside Practitioners] - Diet: Regular Addtl Attending Provider Instructions: Mrs. Stahl, You were recently hospitalized for abdominal pain, nausea, and vomiting. You were found to have a stone in your right kidney area. You underwent a cystoscopy with Dr. Garcia on 05/15. While in the hospital you also had diarrhea and developed a rash likely secondary to your antibiotic. Please see recommendations below regarding your discharge. Please take Bactrim twice daily for the next three and a half days. Your first dose at home will be this evening, 05/18. Please take with food and a probiotic to avoid an upset stomach. Please use Tamsulosin once daily until seen by urology in follow up for further recommendations. Please use Imodium as needed for any lingering diarrhea. Please use Benadryl as needed if your rash is bothersome. Please use Pyridium as needed for the next 3 days for stent discomfort. You may also use Tylenol as well for pain. Please follow up with urology. If you do not hear from their office by 05/[address] Garcia's office number is above. You may resume the remainder of your outpatient medications. If you develop any blood in urine, fevers, chills, chest pain, shortness of breath please report back to the ER for further care. Sincerely, Teri Velez PA-C Pending Studies at Discharge: Yes Studies:: stone analysis from cystoscopy Stand-Alone Forms: My [facility] [employer], Smoking Cessation Medications and DC Order Prescriptions: New loperamide 2 mg Capsule 2 mg PO BID PRN (Reason: loose stool) Qty: 30 0RF sulfamethoxazole-trimethoprim [Bactrim DS] 800-160 mg Tablet 1 tab PO Q12 Qty: 7 0RF tamsulosin 0.4 mg Capsule 0.4 mg PO HS Qty: 30 0RF diphenhydramine HCl [Benadryl] 25 mg Capsule 25 mg PO BID PRN (Reason: rash) Qty: 30 0RF Advanced Probiotic 625 mg (10 billion cell) Capsule 1 cap PO DAILY Qty: 30 0RF phenazopyridine [Pyridium] 100 mg tablet 100 mg PO Q8H PRN (Reason: pain) Qty: 6 0RF Continued milk thistle 500 mg Capsule 500 mg PO DAILY Qty: 0 Rx Instructions: give with meal/snack pediatric multivitamin Tablet,Chewable 1 tab PO DAILY Qty: 0 cyanocobalamin (vitamin B-12) [Vitamin B-12] 1,000 mcg Tablet 1,000 mcg PO DAILY Qty: 0 vitamin E 268 mg (400 unit) Capsule 268 mg PO DAILY Qty: 0 simethicone 80 mg Tablet,Chewable 80 mg PO BID PRN (Reason: Abdominal Distention) Qty: 0 calcium-vitamin D3-vitamin K 500 mg-100 unit -40 mcg Tablet,Chewable 1 tab PO BID Qty: 0 cholecalciferol (vitamin D3) [Vitamin D3] 50 mcg (2,000 unit) Tablet 50 mcg PO DAILY Qty: 0 sertraline 100 mg tablet 100 mg PO DAILY Rx Instructions: Take 100mg w/ 25mg to equal 125mg by mouth daily clopidogrel 75 mg tablet 75 mg PO DAILY sertraline 25 mg tablet 25 mg PO DAILY Rx Instructions: Take 25mg w/ 100mg to equal 125mg by mouth daily pravastatin 20 mg tablet 20 mg PO DAILY Ozempic 0.25 mg or 0.5 mg (2 mg/3 mL) pen injector 0.5 mg subcut WK Rx Instructions: Saturday Discharge Orders: Discharge Order (Routine); Ordered 05/18/24 Ordered By: Teri Velez Admission Data Admit Date/Time: 05/15/24 14:25 Attending Provider: Jasmine Grace Admit Provider: Elpidio Villanueva Primary Care Provider: Eh Durán Other Providers: Elpidio Villanueva; Colton Garcia Other Interventions: Discharge Summary Assessment (RN) Last Done: 05/18/24 12:56 Hospital Stay Data Consultations 05/15/24 12:23 ED Decision to Admit Stat 05/15/24 16:04 Consult Urology Routine Procedures Performed Operation Date: 05/15/24 10:40 Actual Procedures p Cystoscopy, Right Ureteral Stent Insertion(Right) - Colton Garcia MD Diagnostic Imagining Performed 05/15/24 FL retrograde includes kub Routine 05/15/24 07:35 CT abd pelvis IV con only Stat Pending Results Patient Have Any Pending Studies at Discharge: Yes Discharge Instructions Given to Patient (Per Discharging Provider) Mrs. Stahl, You were recently hospitalized for abdominal pain, nausea, and vomiting. You were found to have a stone in your right kidney area. You underwent a cystoscopy with Dr. Garcia on 05/15. While in the hospital you also had diarrhea and developed a rash likely secondary to your antibiotic. Please see recommendations below regarding your discharge. Please take Bactrim twice daily for the next three and a half days. Your first dose at home will be this evening, 05/18. Please take with food and a probiotic to avoid an upset stomach. Please use Tamsulosin once daily until seen by urology in follow up for further recommendations. Please use Imodium as needed for any lingering diarrhea. Please use Benadryl as needed if your rash is bothersome. Please use Pyridium as needed for the next 3 days for stent discomfort. You may also use Tylenol as well for pain. Please follow up with urology. If you do not hear from their office by 05/[address] Garcia's office number is above. You may resume the remainder of your outpatient medications. If you develop any blood in urine, fevers, chills, chest pain, shortness of breath please report back to the ER for further care. Sincerely, Teri Velez PA-C Total Time Total Time Spent Total Time Spent (In Minutes): 40 Total Time Includes: Examination of the Patient, Discharge Planning, Medication Reconciliation and Communication With Other Providers Coding Level of Care Code 02921 INP/OBS DISCH >30 MIN Diagnoses Ureterolithiasis N20.1 Diarrhea R19.7 Fever R50.9 Nausea & vomiting R11.2 Diabetes E11.9
[2024-05-18] MEDS: SULFAMETHOXAZOLE/TRIMETHOPRIM DS 800/160MG TAB PO SCH (09:15)
--- NOTE | 2024-05-18 15:02 | Communication Note ---
Date of Service: May 18, 2024 This afternoon had several similar spells - the ones I observed she started with stuttering and difficulty speaking, flexed one or both arms/wrists, arched back, extended neck and looked upward. Eyes were open and looking around through these. The spells I witnessed were brief, one lasted <1 minute and the other apx 20-30 seconds. Afterwards was immediately responsive and able to talk, no confusion or postictal states. Her was at bedside and responded with a calming manner. She has had these many times in the past, at one time was at least daily, saw neurologist who discontinued potassium supplement and she was seizure-free for 7 or 8 days after that. They continue to happen intermittently. She hasn't seen her neurologist for a long time who is in [place]. No records in our system. Labs this AM were remarkable for stable pancytopenia, potassium normal at 3.6, normal renal function A/P Nephrolithiasis with ureteral stent three days ago - stent pain/dysuria controlled with current meds. ordered dose of zofran ODT for nausea. IV was taken out because she was discharged this AM Pancytopenia - after a presumably dilutional drop (recurrent vomiting [employer]) it has been stable day over day. I presume this is chronic. We do not have any records. Reviewed meds and no obvious culprit. Developed too fast to be related to antibiotics this admission. Non-epileptic seizures (pseudoseizures) - these seizures are not consistent with epilepsy (maintains alertness, no postictal state, no true tonic-clonic activity), and not consistent with TIA. They are longstanding and not dangerous. Will give lorazepam 1 mg SL to see if it helps. Avoid IV benzodiazepines. She experiences weakness after these events. She may go home with her later tonight if she feels well enough and the seizures calm down, otherwise try again for discharge in AM. I discussed plan of care with her and RONNIE Bates
[2024-05-18] MEDS: ONDANSETRON 4 MG OD TAB PO STA ×2 (15:11→15:12)
[2024-05-18] MEDS: LORazepam 1 MG TAB SL STA (15:12)
[2024-05-19] MEDS: ONDANSETRON 4 MG OD TAB PO PRN (09:29)
--- NOTE | 2024-05-19 11:09 | Discharge Summary ---
Discharge Summary Date of Service May 19, 2024 Principal Dx & Hospital Course #1 = Principal Diagnosis (1) Psychogenic nonepileptic seizure: Patient remained in the hospital on 05/18 after experiencing several episodes of PNES Recurrence last night for several minutes; however, she was able to come out of the episode without a postictal state No tongue biting or loss of urinary continence Regarding h/o PNES, she has seen neurologist in the past, and is not currently on seizure medications Thought to be triggered by stress (2) Ureterolithiasis: 63yo presented with abdominal pain, nausea and vomiting with hx stones in the p ast CTAP: clustered distal right ureteral calculi measuring up to 1cm which result in moderate right hydronephrosis. Urology consulted & following - s/p cystoscopy w/ Dr. Garcia, recommended additional 4 days of abx to complete treatment Urinalysis negative on admission, cultures from cystoscopy pending. CBC w/ pancytopenia, continue to monitor. --> improved 05/18. Follow up w/ PCP outpatient for further workup & repeat CBC. BMP stable Procal 0.09 on admission Due to rash switch from Rocephin to Bactrim starting 05/18. Continue bactrim upon discharge the evening of 05/19 Benadryl prn for itching& Pyridium prn for pain control. Max 3 days. (3) Diarrhea: Patient w/ episodes of diarrhea ongoing since admission C diff testing negative Imodium prn (4) Hematuria: Resolved on the morning of 05/19 (5) Fever: Plan as above, resolved. (6) Nausea & vomiting: suspected 2nd to above. scopolamine patch and antiemetics available and improved ability for PO resolved (7) Diabetes: Chronic. Glu 282 on admission without anion gap. A1c 6.4% Resume Ozempic outpatient. Plan Patient remained in the hospital on 05/18 after experiencing several episodes of PNES. She was given IV Ativan yesterday, and while she did have recurrence last night for several minutes, she was able to come out of the episode without a postictal state. No tongue biting or loss of urinary continence. Regarding her history of PNES, she has seen neurologist in the past, and is not currently on seizure medications. Prodrome includes chest palpitations just prior to seizure like activity. Her initial episodes of PNES occurred during a similar episode when she had a kidney stone and was started on potassium citrate; there was concerned that the potassium caused muscle spasms and made her psychogenic seizures worse. She also believes that there could be a component of stress triggering her seizures. She does endorse significant life stressors, which include her mother being in a long-term with dementia, helping her disabled friend, and finances. While she is not had seizures in a couple years, she does report that she had a small episode around 1 month prior to hospitalization. Additionally, patient does have a history of strokes. While she did have some slurred speech, and "tongue drooping" yesterday following her events, she believes that all symptoms have resolved at this point. She is currently on Plavix for history of stroke. Patient reports that she slept well last night, and has felt better in the hospital than anywhere else. Following discussion of risks/benefits with patient, patient feels comfortable returning home at this time. She was made aware that she should return to the hospital if she develops any new or worsening symptoms, which could include things like fever, chills, night sweats, blood in her urine, burning with urination, nausea, vomiting, recurrence of her seizure-like activity, or severe flank pain. She was encouraged to follow-up with her PCP and urologist as soon as possible. ROS at time of discharge: Patient endorses some nausea, headache, and lightheadedness. Patient denies fever, chills, night sweats, syncope, chest pain, chest palpitations (although this does occur prior to her seizures), SOB, cough, pleuritic CP, abdominal pain, vomiting, blood in her stool, hematuria (this resolved yesterday), or numbness or tingling in her arms or legs. Admission HPI Per Admitting Provider Kelly is a 63 yo F with a pmhx of DMT2, HLD, depression, h/o gastric bypass over 10 yrs ago who presented to the ER today c/o n/v and right sided flank pain that started last evening. History is limited as patient is still in PACU recovering from anesthesia and is unable to provide any subjective information. Therefore, history is taken from ER note and chart information. 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 She began having n/v last evening and flank pain, no reported fever or abdominal pain or diarrhea. No ill contacts or recent travel. She does have a h/o kidney stones in the past. Her ER w/u showed a normal UA and no fever on initial presentation and no leukocytosis on CBC. However, she spiked a fever and her lactate returned mildly elevated at 2.1. A CTAP was obtained with contrast that demonstrated a conglomerate of kidney stones measuring 1cm in the distal right ureter. She was aggressively hydrated with NSS and treated empirically with ceftriaxone 2g x1. Urology was consulted and took her to the OR for stent placement. She is [facility] seen in PACU, she is currently on 4L oxymask. She has a scopolamine patch in place d/t her severe n/v. She has been referred to hospital medicine team for admission. Discharge Exam General: no acute distress; pleasant affect; non-toxic appearing; well- nourished; cooperative; SpO2 94% on room air HEENT: normocephalic, atraumatic; no scleral icterus; PERRLA w/ EOMs intact; vision and hearing grossly intact Neck: supple; no lymphadenopathy; trachea midline Skin: No rashes noted around the neck; warm, dry without signs of tenting; no cyanosis; no bruising, lesions, or erythema noted CV: chest wall NTP; RRR; S1/S2 normal; no murmurs/rubs/gallops; pulses intact and symmetric at radial, DP, and PT Lungs: no acute respiratory distress; symmetrical chest wall expansion; clear breath sounds across all lung nix w/o adventitious sounds; no wheezing ABD: Soft, NTP; BS present; no rebound/guarding; no distention MSK: no tics or fasciculations; no edema noted in the LEs b/l, nonerythematous Neuro: A&Ox3; normal mood and affect; fluent speech; no slurred speech or facial droop; negative pronator drift; no focal deficits; sensation grossly intact in the LEs b/l Discharge Plan Discharge Items Patient Disposition: Home - Self-Care Reason For Visit: ILLNESS Discharge Diagnosis: Ureterolithiasis, Diarrhea Activity: Resume your previous activity Non-emergency contact: Primary Care Provider and Urologist Call non-emergency contact if: you have any medication questions, your symptoms worsen, your pain is not controlled and you have a fever Follow-up/Referrals: Colton Garcia MD [Physician] - (THE OFFICE WILL CALL YOU WITH A HOSPITAL FOLLOW UP VISIT.) Yojana Bolanos C.R.N.P. [Outside Practitioners] - Diet: Regular Addtl Attending Provider Instructions: Mrs. Stahl, You were recently hospitalized for abdominal pain, nausea, and vomiting. You were found to have a stone in your right kidney area. You underwent a cystoscopy with Dr. Garcia on 05/15. While in the hospital you also had diarrhea and developed a rash likely secondary to your antibiotic. Please see recommendations below regarding your discharge. Please take Bactrim twice daily for the next two and a half days. Your third dose at home will be this evening, 05/19. Please take with food and a probiotic to avoid an upset stomach. Please use Tamsulosin once daily until seen by urology in follow up for further recommendations. Please use Imodium as needed for any lingering diarrhea. Please use Benadryl as needed if your rash is bothersome. Please use Pyridium as needed for the next 3 days for stent discomfort. You may also use Tylenol as well for pain. Please follow up with urology. If you do not hear from their office by 05/[address] Garcia's office number is above. You may resume the remainder of your outpatient medications. If you develop any blood in urine, fevers, chills, chest pain, shortness of breath, or recurrence of seizure-like activity please report back to the ER for further care. Sincerely, Teri Velez PA-C & Ryan Rod PA-C Pending Studies at Discharge: Yes Studies:: stone analysis from cystoscopy Stand-Alone Forms: My [facility] [employer], Smoking Cessation Medications and DC Order Prescriptions: New loperamide 2 mg Capsule 2 mg PO BID PRN (Reason: loose stool) Qty: 30 0RF sulfamethoxazole-trimethoprim [Bactrim DS] 800-160 mg Tablet 1 tab PO Q12 Qty: 7 0RF tamsulosin 0.4 mg Capsule 0.4 mg PO HS Qty: 30 0RF diphenhydramine HCl [Benadryl] 25 mg Capsule 25 mg PO BID PRN (Reason: rash) Qty: 30 0RF Advanced Probiotic 625 mg (10 billion cell) Capsule 1 cap PO DAILY Qty: 30 0RF phenazopyridine [Pyridium] 100 mg tablet 100 mg PO Q8H PRN (Reason: pain) Qty: 6 0RF Continued milk thistle 500 mg Capsule 500 mg PO DAILY Qty: 0 Rx Instructions: give with meal/snack pediatric multivitamin Tablet,Chewable 1 tab PO DAILY Qty: 0 cyanocobalamin (vitamin B-12) [Vitamin B-12] 1,000 mcg Tablet 1,000 mcg PO DAILY Qty: 0 vitamin E 268 mg (400 unit) Capsule 268 mg PO DAILY Qty: 0 simethicone 80 mg Tablet,Chewable 80 mg PO BID PRN (Reason: Abdominal Distention) Qty: 0 calcium-vitamin D3-vitamin K 500 mg-100 unit -40 mcg Tablet,Chewable 1 tab PO BID Qty: 0 cholecalciferol (vitamin D3) [Vitamin D3] 50 mcg (2,000 unit) Tablet 50 mcg PO DAILY Qty: 0 sertraline 100 mg tablet 100 mg PO DAILY Rx Instructions: Take 100mg w/ 25mg to equal 125mg by mouth daily clopidogrel 75 mg tablet 75 mg PO DAILY sertraline 25 mg tablet 25 mg PO DAILY Rx Instructions: Take 25mg w/ 100mg to equal 125mg by mouth daily pravastatin 20 mg tablet 20 mg PO DAILY Ozempic 0.25 mg or 0.5 mg (2 mg/3 mL) pen injector 0.5 mg subcut WK Rx Instructions: Saturday Krames/Other Patient Handouts: A1C, Managing Type 2 Diabetes Admission Data Admit Date/Time: 05/15/24 14:25 Attending Provider: Umer Way Admit Provider: Elpidio Villanueva Primary Care Provider: Eh Durán Other Providers: Elpidio Villanueva; Colton Garcia Other Interventions: Discharge Summary Assessment (RN) Last Done: 05/18/24 12:56 Hospital Stay Data Consultations 05/15/24 12:23 ED Decision to Admit Stat 05/15/24 16:04 Consult Urology Routine Procedures Performed Operation Date: 05/15/24 10:40 Actual Procedures p Cystoscopy, Right Ureteral Stent Insertion(Right) - Colton Garcia MD Diagnostic Imagining Performed 05/15/24 FL retrograde includes kub Routine 05/15/24 07:35 CT abd pelvis IV con only Stat Pending Results Patient Have Any Pending Studies at Discharge: Yes Discharge Instructions Given to Patient (Per Discharging Provider) Mrs. Stahl, You were recently hospitalized for abdominal pain, nausea, and vomiting. You were found to have a stone in your right kidney area. You underwent a cystoscopy with Dr. Garcia on 05/15. While in the hospital you also had diarrhea and developed a rash likely secondary to your antibiotic. Please see recommendations below regarding your discharge. Please take Bactrim twice daily for the next two and a half days. Your third dose at home will be this evening, 05/19. Please take with food and a probiotic to avoid an upset stomach. Please use Tamsulosin once daily until seen by urology in follow up for further recommendations. Please use Imodium as needed for any lingering diarrhea. Please use Benadryl as needed if your rash is bothersome. Please use Pyridium as needed for the next 3 days for stent discomfort. You may also use Tylenol as well for pain. Please follow up with urology. If you do not hear from their office by 05/[address] Garcia's office number is above. You may resume the remainder of your outpatient medications. If you develop any blood in urine, fevers, chills, chest pain, shortness of breath, or recurrence of seizure-like activity please report back to the ER for further care. Sincerely, Teri Velez PA-C & Ryan Rod PA-C Total Time Total Time Spent Total Time Spent (In Minutes): 30 C[place] [address] INP/OBS DISCH >30 MIN Patient Type Established Medical Decision Making High Complexity Diagnoses Psychogenic nonepileptic seizure F44.5 Ureterolithiasis N20.1 Diarrhea R19.7 Hematuria R31.9 Fever R50.9 Nausea & vomiting R11.2 Diabetes E11.9
[2024-05-19 13:54] VITALS: RESP 18
[2024-05-19] MEDS: LORazepam 1 MG TAB SL STA (14:00)
[2024-05-19] MEDS: ACETAMINOPHEN 500 MG TAB PO STA (14:00)
--- NOTE | 2024-05-19 19:12 | Hospitalist Progress Note ---
Date of Service May 19, 2024 Assessment & Plan (1) Psychogenic nonepileptic seizure: (2) Ureterolithiasis: (3) Diarrhea: (4) Hematuria: (5) Fever: (6) Nausea & vomiting: (7) Diabetes: Plan Patient originally presented with abdominal pain, nausea, and vomiting with history of kidney stones. Patient was set to be discharged on both 05/18 and 05/19, but then developed episodes of nausea and vomiting as well as recurrence of her PNES. Continued hospital stay, with hopeful discharge on 05/20. #PNES Patient developed several episodes of seizure-like activity on 05/18 Stuttering, difficulty speaking, twitching, and jerking movements lasting for approximately 20-30 seconds No tongue biting or loss urinary incontinence; no postictal state, and patient was able to communicate effectively following each of these episodes Ativan 1 mg SL x 1 given on 05/18 and 05/19 Avoid IV benzodiazepines #Urethrolithiasis CTAP: clustered distal right ureteral calculi measuring up to 1cm which result in moderate right hydronephrosis. Urology consulted & following - s/p cystoscopy w/ Dr. Garcia on 05/15, recommended additional 4 days of abx to complete treatment Urinalysis negative on admission, cultures from cystoscopy pending. CBC w/ pancytopenia, continue to monitor. --> improved 05/18. Follow up w/ PCP outpatient for further workup & repeat CBC. BMP stable Procal 0.09 on admission Due to rash switch from Rocephin to Bactrim starting 05/18 Continue Bactrim while inpatient Benadryl prn for itching & Pyridium prn for pain control. Max 3 days. #Diarrhea Imodium as needed C. difficile testing negative #Fever Resolved #Nausea and vomiting Scopolamine patch and IV antiemetics as needed #Diabetes A1c 6.4% Plan to resume Ozempic outpatient VTE PPx: SCDs Admission and Anticipated Discharge Date Admission Date: May 15, 2024 Noah Mendoza reports recurrence of her seizure-like activity but during the day and last night on 05/18. She reports that she does have a history of seizures, with the first episode being a couple years ago. She had been seizure-free for those 2 years (not currently on seizure medication), but then had a small episode 1 month ago. She believes these are brought on by stress. She also reports that they first started when she had kidney stones 2 years ago and was originally attributed to starting potassium citrate. She thinks that the potassium may have contributed to muscle spasms and exacerbated her symptoms. She has followed with neurology in the past, and has been told that these are psychogenic nonepileptic seizures likely triggered by stress. She denies any tongue biting or loss of urinary continence with the seizures, and reports that they last for 30 seconds to a couple minutes at a time. Discussed with nursing staff, and there have been no postictal states following the seizures. During these episodes, she does report that she has some facial droop and tongue sticking out to her side; she does have a history of 3 strokes, but reports good compliance with Plavix. Chest palpitations or prodrome for her seizure-like activity. Additionally, patient reports that she has had significant life stressors at home which include her mom being in a jail with dementia, finances, and helping her disabled friend. She reports she has "slept better in the hospital than anywhere else". While she was initially okay with being discharged, she developed recurrence of nausea and vomiting on 05/19, similar to what she had on admission, and expressed a desire to remain in the hospital. She also had an additional episode of seizure-like activity lasting approximately 30 seconds on the evening of 05/19. ROS: Patient endorses nausea, dizziness/lightheadedness, headache, chest palpitations (prior to seizure-like TBD), and hematuria (resolved today on 05/19) Patient denies vomiting, fever, chills, syncope, chest pain, SOB, pleuritic CP, abdominal pain, blood in the stool, or numbness or tingling the arms or legs. Review of Systems Review of Systems: See HPI above Physical Exam Physical Exam: General: no acute distress; pleasant affect; non-toxic appearing; well- nourished; cooperative; SpO2 90% on RA HEENT: normocephalic, atraumatic; no scleral icterus; PERRLA w/ EOMs intact; vision and hearing grossly intact Neck: supple; no lymphadenopathy; trachea midline Skin: No rashes noted on the neck; warm, dry without signs of tenting; no cyanosis; no rashes, bruising, lesions, or erythema noted CV: chest wall NTP; RRR; S1/S2 normal; no murmurs/rubs/gallops; pulses intact and symmetric at radial, DP, and PT Lungs: no acute respiratory distress; symmetrical chest wall expansion; clear breath sounds across all lung nix w/o adventitious sounds; no wheezing ABD: Soft, NTP; BS present; no rebound/guarding; no distention MSK: no tics or fasciculations; no edema noted in the LEs b/l, nonerythematous; 5/5 financial underwriter strength bilaterally Neuro: A&Ox3; normal mood and affect; fluent speech; negative pronator drift; no focal deficits; sensation intact and symmetric in the upper extremities and lower EXTR bilaterally Results & Data Results & Data Vital Signs (Past 12 Hours) Vital Signs Temp Pulse Resp BP Pulse Ox O2 Del Method 05/19/24 13:53 37.1 C 81 18 123/72 93 Room Air 05/19/24 07:53 36.7 C 75 16 132/77 94 Room Air Laboratory Results Abnormal lab results 05/18/24 05/19/24 05/19/24 Range/Units 20:26 07:28 11:21 POC Glucose 129 H 125 H 147 H (70-99) mg/dl PG Care Time/CCT Total # of Minutes Spent Total Time Spent with Patient: Total time spent is greater than 50% in coordination of care (as documented) at patient's floor/unit and/or counseling patient: Coding [place] [address] SUB INP/OBS CARE 3/50MIN Patient Type Established History Comprehensive Exam Comprehensive Medical Decision Making High Complexity Diagnoses Psychogenic nonepileptic seizure F44.5 Ureterolithiasis N20.1 Diarrhea R19.7 Hematuria R31.9 Fever R50.9 Nausea & vomiting R11.2 Diabetes E11.9
[2024-05-19 19:44] VITALS: TEMP 98.1; O2SAT 94
[2024-05-20 07:35] VITALS: BP 107/68; PULSE 76
== END 2024-05-20 15:30 | disposition home or self-care (01) | DRG 660 ==
LOC: ED 06:58 → OR 12:37 → PACUINP 14:25 → SUATTDRO 14:25 → 3N 16:51